=== PATIENT | male | born 1990 | race Two or more races ===

== ENCOUNTER 2022-10-14 13:45 | Inpatient (IN) | payer MEDICAID ==
[~2022-10-14] VITALS: Ht 180.3 cm; Wt 77.1 kg
[2022-10-14] MEDS ORDERED: ONDANSETRON 4 MG/2 ML VIAL IV ONE (14:15)
[2022-10-14] MEDS ORDERED: IV NORMAL SALINE 1000 ML BAG IV ONE ×3 (14:15→18:30)
[2022-10-14] MEDS ORDERED: ONDANSETRON 4 MG/2 ML VIAL ONE (14:21)
[2022-10-14 14:24] LABS: HEMATOCRIT 45.3 % (36.7-47.1); MEAN CORPUSCULAR HEMOGLOBIN 29.6 uug (23.8-33.4); MEAN CORPUSCULAR VOLUME 89.5 fL (73.0-96.2); PLATELET COUNT (AUTO) 394 K/uL (152-348)
[2022-10-14 14:38] LABS: BILIRUBIN,DIRECT 0.2 mg/dL (0.0-0.2); CREATININE 1.9 mg/dL (0.6-1.3); POTASSIUM 4.1 mmol/L (3.5-5.1); TOTAL PROTEIN, SERUM 9.1 g/dL (6.4-8.2)
[2022-10-14] MEDS ORDERED: INSULIN REGULAR, HUMAN 300 UNIT/3 ML VIAL IV ONE (15:30)
[2022-10-14] MEDS ORDERED: MORPHINE SULFATE 2 MG/1 ML DISP.SYRIN IV ONE (15:30)
[2022-10-14] MEDS ORDERED: INSULIN LISPRO 300 UNIT/3 ML VIAL SQ ONE (15:34)
[2022-10-14] MEDS ORDERED: MORPHINE SULFATE 2 MG/1 ML DISP.SYRIN ONE (15:48)
--- NOTE | 2022-10-14 18:31 | NUR ---
Patient presented to the ER with complaints of abdominal pain and nausea vomiting. Physician seen, labs and imaging complated, and medications given per order. Pain and agitation has reduced significantly. Patient to be admitted.
[2022-10-14] MEDS ORDERED: PROCHLORPERAZINE EDISYLATE 10 MG/2 ML VIAL ONE (19:21)
[2022-10-14] MEDS ORDERED: LORAZEPAM 2 MG/1 ML VIAL ONE (19:26)
[2022-10-14 19:27] LABS: *BILIRUBIN,URIN NEGATIVE (NEGATIVE); *CLARITY,URINE CLEAR (CLEAR); *COLOR,URINE YELLOW (YELLOW); *KETONES,URINE 2+ (NEGATIVE); *UROBILINOGEN,URINE 0.2 E.U./dl (NORMAL); LEUKOCYTE ESTERASE ,URINE NEGATIVE (NEGATIVE); NITRITE, URINE NEGATIVE (NEGATIVE); PH,URINE 5.5 (5.0-8.0)
[2022-10-14 19:28] LABS: UGLUCOSE 2+ (NEGATIVE)
[2022-10-14 19:29] LABS: *BLOOD, URINE TRACE (NEGATIVE)
[2022-10-14] MEDS ORDERED: LORAZEPAM 2 MG/1 ML VIAL IV ONE (19:30)
[2022-10-14] MEDS ORDERED: PROCHLORPERAZINE EDISYLATE 10 MG/2 ML VIAL IV ONE (19:30)
--- NOTE | 2022-10-14 19:50 | NUR ---
Note corby in ED - 10/14/22 at 2200 by THU EKG not performed, PT stated that he doesnt want to stay overnight in the hospital. Dr. Sharyn guzman.
[2022-10-14 19:53] LABS: BACTERIA,URINE NONE SEEN /HPF (NONE SEEN); RBC,URINE 0-3 /HPF (0-3); SQUAMOUS EPITHELIAL CELL,UR FEW /HPF (NONE SEEN); WBC,URINE NONE SEEN /HPF (0-3)
[2022-10-14] MEDS ORDERED: ONDANSETRON 4 MG/2 ML VIAL IV PRN (20:30)
[2022-10-14] MEDS ORDERED: MORPHINE SULFATE 4 MG/1 ML DISP.SYRIN IV PRN (20:30)
[2022-10-14] MEDS ORDERED: INSULIN REGULAR, HUMAN 300 UNIT/3 ML VIAL SQ PRN (20:30)
[2022-10-14] MEDS ORDERED: BLOOD SUGAR DIAGNOSTIC 1 EACH STRIP VI SCH (20:30)
[2022-10-14] MEDS ORDERED: DEXTROSE 50% 50 ML DISP.SYRIN IV PRN (20:30)
[2022-10-14] MEDS ORDERED: IV NS 1000 ML 1,000 ML IV PRN (20:30)
--- NOTE | 2022-10-14 21:00 | NUR ---
Called 3rd fl for TELE bed.
--- NOTE | 2022-10-14 21:40 | NUR ---
Report given to NENO Salas.
--- NOTE | 2022-10-14 21:50 | NUR ---
EKG not performed, PT stated that he doesnt want to stay overnight in the hospital. Dr. Sharyn guzman.
--- NOTE | 2022-10-14 21:59 | NUR ---
Called [facility] and they will page Dr. Lew.
--- NOTE | 2022-10-14 22:50 | NUR ---
Patient does not wish to proceed with medical care recommended by Dr. Coles. Patient given information related to possible complications, up to and including , which could occur as a result of leaving the hospital at this time. Patient verbalizes understanding of risks involved due to leaving against medical advice. Patient has signed AMA form.
[2022-10-14] MEDS ORDERED: INSU100C13 SQ (23:02)
[2022-10-14] MEDS ORDERED: METO-295 PO (23:05)
[2022-10-14 23:10] VITALS: BP 119/60
[2022-10-14] MEDS ORDERED: BLOO-1731 MC (23:10)
--- NOTE | 2022-10-14 23:10 | NUR ---
PT is A/O x 4. NAD noted. Ambulatory with a steady gait.
[2022-10-15] MEDS ORDERED: PANTOPRAZOLE SODIUM 40 MG VIAL IV SCH (09:00)
== END 2022-10-14 23:10 | disposition left against medical advice (07) | DRG 48 ==
LOC: ER 13:53 → TELE3 20:22
DX: E10.43 Type 1 diabetes mellitus with diabetic autonomic (poly)neuropathy (principal); E87.1 Hypo-osmolality and hyponatremia; E10.65 Type 1 diabetes mellitus with hyperglycemia; K31.84 Gastroparesis; K21.9 Gastro-esophageal reflux disease without esophagitis; Z20.822 Contact with and (suspected) exposure to COVID-19; Z79.4 Long term (current) use of insulin
CPT/HCPCS: 36415; 85025; 93005; G0378; J0780; J1815; J2060; J2270; J2405; J7040

== ENCOUNTER 2022-10-23 16:35 | Emergency (ER) | payer MEDICAID ==
[~2022-10-23] VITALS: Ht 172.7 cm; Wt 77.1 kg
[~2022-10-23 16:35] MED LIST: BLOO-1731 MC; INSU100C13 SQ; METO-295 PO
[2022-10-23] MEDS ORDERED: HALOPERIDOL LACTATE 5 MG/1 ML VIAL ONE (16:59)
[2022-10-23] MEDS ORDERED: IV NORMAL SALINE 500 ML BAG IV ONE ×2 (17:00→18:00)
[2022-10-23] MEDS ORDERED: HALOPERIDOL LACTATE 5 MG/1 ML VIAL IV ONE (17:00)
[2022-10-23 17:03] LABS: MEAN CORPUSCULAR HEMOGLOBIN 29.2 uug (23.8-33.4); MEAN CORPUSCULAR VOLUME 89.9 fL (73.0-96.2); PLATELET COUNT (AUTO) 349 K/uL (152-348)
[2022-10-23] MEDS ORDERED: MORPHINE SULFATE 4 MG/1 ML DISP.SYRIN IV ONE ×2 (17:15→19:30)
[2022-10-23 17:17] LABS: BILIRUBIN,TOTAL 0.6 mg/dL (0.2-1.0); CREATININE 1.4 mg/dL (0.6-1.3); POTASSIUM 4.3 mmol/L (3.5-5.1); TOTAL PROTEIN, SERUM 8.2 g/dL (6.4-8.2)
[2022-10-23] MEDS ORDERED: EPINEPHRINE 1 MG/1 ML AMP ONE (17:22)
[2022-10-23] MEDS ORDERED: diphenhydrAMINE 50 MG/1 ML VIAL ONE (17:23)
[2022-10-23] MEDS ORDERED: diphenhydrAMINE 50 MG/1 ML VIAL IV ONE (17:30)
--- NOTE | 2022-10-23 17:30 | NUR ---
Pt arrived w/c/o severe abd pain, 06/03, pt was screaming, moaning with facial grimacing. Seen by Dr. Perez for MSE.
[2022-10-23] MEDS ORDERED: EPINEPHRINE 1:10,000 1 MG/10 ML DISP.SYRIN MC ONE (17:45)
--- NOTE | 2022-10-23 17:50 | NUR ---
Received report from lab, glucose = 416.
[2022-10-23] MEDS ORDERED: MORPHINE SULFATE 4 MG/1 ML DISP.SYRIN ONE ×2 (18:23→19:43)
[2022-10-23] MEDS ORDERED: METOCLOPRAMIDE HCL 10 MG/2 ML VIAL ONE (18:43)
[2022-10-23] MEDS ORDERED: METOCLOPRAMIDE HCL 10 MG/2 ML VIAL IV ONE (18:45)
--- NOTE | 2022-10-23 19:07 | NUR ---
Endorsed to Nishi LAZCANO.
[2022-10-23] MEDS ORDERED: ONDA4TAB5 PO (19:27)
[2022-10-23] MEDS ORDERED: INSULIN REGULAR, HUMAN 300 UNIT/3 ML VIAL IV ONE (19:30)
--- NOTE | 2022-10-23 19:30 | NUR ---
SADIA FROM ARNULFO Collins RN
[2022-10-23] MEDS ORDERED: INSULIN REGULAR, HUMAN 300 UNIT/3 ML VIAL ONE (19:44)
--- NOTE | 2022-10-23 19:50 | NUR ---
PT BS RECHECKED AND RESULT IS 399; ORDERS TO GIVE 7UNITS OF REG INSULIN OBTAINED
--- NOTE | 2022-10-23 21:37 | NUR ---
Patient discharged to home in stable condition. Written and verbal after care instructions given. Patient verbalizes understanding of instructions. Stressed follow up or return to ER for worsening s/s.
--- NOTE | 2022-10-23 21:37 | NUR ---
IV removed. Catheter intact and site benign. Pressure and 4x4 gauze applied to site. No bleeding noted.
[2022-10-23 21:39] VITALS: BP 123/65
== END 2022-10-23 21:41 | disposition home or self-care (01) ==
LOC: ER 16:38
DX: R10.13 Epigastric pain (principal); E86.0 Dehydration; E10.65 Type 1 diabetes mellitus with hyperglycemia; E10.43 Type 1 diabetes mellitus with diabetic autonomic (poly)neuropathy; K31.84 Gastroparesis; Z79.4 Long term (current) use of insulin; D72.829 Elevated white blood cell count, unspecified; R11.2 Nausea with vomiting, unspecified
CPT/HCPCS: 80053; 82962 ×2; 85025; 36415; 93005; 71045; 99285; 96361; 96374; 96375; 96376; 96372; 36600; J1200; J0171; J1630; J2765; J2270 ×2; J1815; J7040; A4663

== ENCOUNTER 2022-11-09 13:41 | Inpatient (IN) | payer MEDICAID ==
[~2022-11-09] VITALS: Ht 180.3 cm; Wt 74.2 kg
[~2022-11-09 13:41] MED LIST changes: +ONDA4TAB5 PO
[2022-11-09] MEDS ORDERED: ONDANSETRON 4 MG/2 ML VIAL IV ONE (14:00)
[2022-11-09] MEDS ORDERED: IV NORMAL SALINE 1000 ML BAG IV ONE ×2 (14:00→16:00)
[2022-11-09] MEDS ORDERED: MORPHINE SULFATE 2 MG/1 ML DISP.SYRIN IV ONE (14:00)
[2022-11-09] MEDS ORDERED: ONDANSETRON 4 MG/2 ML VIAL ONE (14:06)
[2022-11-09] MEDS ORDERED: MORPHINE SULFATE 4 MG/1 ML DISP.SYRIN ONE (14:06)
[2022-11-09 14:12] LABS: HEMATOCRIT 43.8 % (36.7-47.1); MEAN CORPUSCULAR HEMOGLOBIN 29.3 uug (23.8-33.4); MEAN CORPUSCULAR VOLUME 87.3 fL (73.0-96.2); PLATELET COUNT (AUTO) 427 K/uL (152-348)
--- NOTE | 2022-11-09 14:16 | NUR ---
Pt arrived in the ED w/ c/o abdominal pain, 07/03 and missed insulin medication. Accucheck 177 @ 1350. No fruity breath observed. Seen by Dr. Wood for MSE.
[2022-11-09 14:25] LABS: BILIRUBIN,DIRECT 0.2 mg/dL (0.0-0.2); BILIRUBIN,TOTAL 0.9 mg/dL (0.2-1.0); CREATININE 1.6 mg/dL (0.6-1.3); POTASSIUM 3.6 mmol/L (3.5-5.1); TOTAL PROTEIN, SERUM 9.8 g/dL (6.4-8.2)
[2022-11-09 14:35] LABS: ETHANOL < 3 MG/DL (0-0)
--- NOTE | 2022-11-09 15:56 | NUR ---
Pt refused CT Abdomen/Pelvis w/o contrast, notified.
[2022-11-09] MEDS ORDERED: PIPERACILLIN SODIUM/TAZOBACTAM 3.375 G in IV DEXTROSE 5% 50 ML IV ONE (16:00)
[2022-11-09] MEDS ORDERED: PIPERACILLIN/TAZOBACTAM/D5W 50 ML IV ONE ×2 (16:02→21:44)
[2022-11-09 17:53] LABS: *CLARITY,URINE SLIGHTLY CLOUDY (CLEAR); *COLOR,URINE YELLOW (YELLOW); *KETONES,URINE 1+ (NEGATIVE); *UROBILINOGEN,URINE 0.2 E.U./dl (NORMAL); LEUKOCYTE ESTERASE ,URINE NEGATIVE (NEGATIVE); NITRITE, URINE NEGATIVE (NEGATIVE); PH,URINE 8.5 (5.0-8.0); UGLUCOSE TRACE (NEGATIVE)
[2022-11-09] MEDS ORDERED: METOCLOPRAMIDE HCL 10 MG/2 ML VIAL IV ONE (18:15)
[2022-11-09] MEDS ORDERED: diphenhydrAMINE 50 MG/1 ML VIAL IV ONE (18:15)
[2022-11-09] MEDS ORDERED: diphenhydrAMINE 50 MG/1 ML VIAL ONE (18:17)
[2022-11-09] MEDS ORDERED: METOCLOPRAMIDE HCL 10 MG/2 ML VIAL ONE (18:17)
--- NOTE | 2022-11-09 18:27 | NUR ---
Pt will be admitted under the medical care of Dr. Robert, Telemetry unit, assigned on rm 321.
[2022-11-09 18:28] LABS: *AMPHETAMINE, URINE NEGATIVE (NEGATIVE); *CANNABINOID, URINE POSITIVE (NEGATIVE); *COCCAINE, URINE NEGATIVE (NEGATIVE); *PHENCYCLIDINE SCREEN,URINE NEGATIVE (NEGATIVE)
--- NOTE | 2022-11-09 18:48 | NUR ---
Called Tele to give report x2, no assigned nurse yet to receive report per Bety.
--- NOTE | 2022-11-09 19:05 | NUR ---
Endorsed to Nemesio FRANKLIN
[2022-11-09 19:22] LABS: *BILIRUBIN,URIN 1+ (NEGATIVE); *BLOOD, URINE TRACE (NEGATIVE)
--- NOTE | 2022-11-09 19:58 | NUR ---
Gave report to Ingrid LAZCANO.
[2022-11-09 20:58] LABS: SQUAMOUS EPITHELIAL CELL,UR FEW /HPF (NONE SEEN)
[2022-11-09 20:59] LABS: BACTERIA,URINE MODERATE /HPF (NONE SEEN)
[2022-11-09 21:00] VITALS: BP 183/105
--- NOTE | 2022-11-09 21:00 | NUR ---
Admitted a 32 years old patient with Dx of Abdominal pain and vomiting. Patient AAOx4. Complain of severe abdominal pain, aching, sharp and tightness 10/. Informed Dr. Borjas and awaiting admitting orders. Left AC IV site intact and patent. NSR on tele with HR of 78/min. Routine admission care done. Plan of care initiated. Safety measure initiated and call light within reached.
--- NOTE | 2022-11-09 21:00 | NUR ---
Pt. admitted to TELE, under care of Dr. Robert. Belongs List completed and with patient. RN Ingrid made aware of patient's arrival.
[2022-11-09] MEDS ORDERED: ACETAMINOPHEN 650 MG SUPP.RECT RC PRN (21:15)
[2022-11-09] MEDS: MORPHINE SULFATE 4 MG/1 ML DISP.SYRIN IV PRN (21:16)
[2022-11-09] MEDS ORDERED: DEXTROSE 50% 50 ML DISP.SYRIN IV PRN (21:45)
[2022-11-09] MEDS ORDERED: BLOOD SUGAR DIAGNOSTIC 1 EACH STRIP VI SCH (21:45)
[2022-11-09] MEDS ORDERED: IV D5W-0.45% NS +20 KCL 1,000 ML IV ONE (21:54)
[2022-11-09] MEDS: POTASSIUM CHLORIDE 20 MEQ in IV D5 1/2 NS 1000 ML 1,000 ML IV PRN (22:00)
[2022-11-09] MEDS ORDERED: PIPERACILLIN SODIUM/TAZOBACTAM 3.375 G in IV DEXTROSE 5% 50 ML IV SCH (22:00)
[2022-11-09] MEDS: INSULIN REGULAR, HUMAN 300 UNIT/3 ML VIAL SQ PRN (22:01)
[2022-11-09 23:03] VITALS: BP 127/79
[2022-11-10] VITALS: BP 138/85
[2022-11-10] MEDS ORDERED: PIPERACILLIN SODIUM/TAZOBACTAM 3.375 G in IV DEXTROSE 5% 50 ML IV ONE (01:00)
[2022-11-10] MEDS: ONDANSETRON 4 MG/2 ML VIAL IV PRN ×2 (01:38→05:39)
[2022-11-10] MEDS: MORPHINE SULFATE 4 MG/1 ML DISP.SYRIN IV PRN ×3 (01:38→10:56)
[2022-11-10 03:50] VITALS: BP 136/82
[2022-11-10] MEDS: BLOOD SUGAR DIAGNOSTIC 1 EACH STRIP VI SCH ×2 (05:38→12:14)
[2022-11-10] MEDS: INSULIN REGULAR, HUMAN 300 UNIT/3 ML VIAL SQ PRN ×2 (05:38→12:36)
[2022-11-10 07:21] LABS: HEMATOCRIT 35.6 % (36.7-47.1); MEAN CORPUSCULAR HEMOGLOBIN 29.4 uug (23.8-33.4); MEAN CORPUSCULAR VOLUME 88.8 fL (73.0-96.2); PLATELET COUNT (AUTO) 303 K/uL (152-348)
--- NOTE | 2022-11-10 07:30 | NUR ---
Sleeping, appears comfortable. IVF infusing. NPO maintained.
[2022-11-10 07:45] LABS: ALANINE AMINOTRANSFERASE 18 U/L (16-63); ALKALINE PHOSPHATASE 84 U/L (50-136); ASPARTATE AMINOTRANSFERASE 18 U/L (15-37); BILIRUBIN,TOTAL 0.7 mg/dL (0.2-1.0); CARBON DIOXIDE 27 mmol/L (21-32); CHLORIDE 100 mmol/L (98-107); CHOLESTEROL 176 mg/dL (<200); CREATININE 1.2 mg/dL (0.6-1.3); GLUCOSE 228 mg/dL (74-106); HDL CHOLESTEROL 34 mg/dL (40-60); MAGNESIUM 1.4 mg/dL (1.8-2.4); PHOSPHOROUS 4.7 mg/dL (2.5-4.9); POTASSIUM 3.5 mmol/L (3.5-5.1); TOTAL PROTEIN, SERUM 6.5 g/dL (6.4-8.2); TRIGLYCERIDES 105 MG/DL (30-150); UREA NITROGEN, BLOOD 12 mg/dL (7-18)
[2022-11-10 07:52] LABS: LIPASE 30 U/L (73-393)
[2022-11-10] MEDS ORDERED: PIPERACILLIN SODIUM/TAZOBACTAM 3.375 G in IV DEXTROSE 5% 100 ML IV SCH (08:00)
[2022-11-10] MEDS ORDERED: PANTOPRAZOLE SODIUM 40 MG VIAL IV SCH (09:00)
[2022-11-10] MEDS ORDERED: LORAZEPAM 2 MG/1 ML VIAL IV PRN (09:30)
[2022-11-10] MEDS: MAGNESIUM SULFATE/D5W 100 ML IV SCH ×2 (09:47→14:11)
[2022-11-10] MEDS: POTASSIUM CHLORIDE 20 MEQ in IV D5 1/2 NS 1000 ML 1,000 ML IV PRN (10:32)
[2022-11-10 11:06] VITALS: BP 146/93
[2022-11-10] MEDS ORDERED: INSULIN GLARGINE,HUM 300 UNITS/3 ML CARTRIDGE SQ SCH (12:30)
[2022-11-10] MEDS ORDERED: INSU100V7 SQ (12:44)
--- NOTE | 2022-11-10 13:10 | NUR ---
CT abdomen/pelvis done.
[2022-11-10] MEDS ORDERED: IOHEXOL 300MG/ML 100 ML INFUS..BTL ONE (14:29)
[2022-11-10] MEDS ORDERED: SWABABLE VALVE TRANSFER SET EA MC ONE (14:29)
[2022-11-10] MEDS ORDERED: IV NORMAL SALINE 250 ML IV ONE (14:30)
--- NOTE | 2022-11-10 16:28 | NUR ---
Patient anxious and crying about issues with and asked to go home against medical advice. Risk and benefits discussed with the patient but insisted on AMA, form signed. Dr. Borjas informed. Saline lock removed. Went home ambulatory in fair condition.
== END 2022-11-10 16:15 | disposition left against medical advice (07) | DRG 720 ==
LOC: ER 13:41 → TELE3 20:37 → MEDSURG3 11-10 10:11
PROVIDERS: ADMIT Internal Medicine; ATTEND Internal Medicine
DX: A41.9 Sepsis, unspecified organism (principal); N17.0 Acute kidney failure with tubular necrosis; E10.43 Type 1 diabetes mellitus with diabetic autonomic (poly)neuropathy; K31.84 Gastroparesis; E83.52 Hypercalcemia; Z79.4 Long term (current) use of insulin; Z20.822 Contact with and (suspected) exposure to COVID-19; A08.4 Viral intestinal infection, unspecified; E10.65 Type 1 diabetes mellitus with hyperglycemia; Z83.3 Family history of diabetes mellitus; K21.9 Gastro-esophageal reflux disease without esophagitis; E86.9 Volume depletion, unspecified; Z91.199 Patient's noncompliance with other medical treatment and regimen due to unspecified reason
CPT/HCPCS: 36415; 71045; 83605; 83690; 83735; 84100; 84484; 85025; 87040; 93005; A4663; C9113; G0378; G0480; J1200; J1815; J2060; J2270; J2405; J2543; J2765; J3475; J3480; J7040; Q9967

== ENCOUNTER 2023-02-18 15:13 | Inpatient (IN) | payer MEDICAID ==
[~2023-02-18] VITALS: Ht 180.3 cm; Wt 74.4 kg
[~2023-02-18 15:13] MED LIST changes: +INSU100V7 SQ
--- NOTE | 2023-02-18 15:33 | NUR ---
Patient ambulated to ER bed 2A, loud moaning heard, c/o severe sudden abdominal pains since about 1400 today, occasional spitting of saliva seen, no actual vomitting seen. Patient denies street drug use.
--- NOTE | 2023-02-18 15:34 | NUR ---
Patient denies marijuana use or any other street drug-use.
[2023-02-18] MEDS ORDERED: MORPHINE SULFATE 2 MG/1 ML DISP.SYRIN IV ONE (15:45)
[2023-02-18] MEDS ORDERED: ONDANSETRON 4 MG/2 ML VIAL IV ONE (15:45)
[2023-02-18] MEDS ORDERED: IV NORMAL SALINE 1000 ML BAG IV ONE (15:45)
--- NOTE | 2023-02-18 15:51 | NUR ---
Patient ambulated to the bathroom with brisk steady gait from ER room 2A to do bowel movement.
--- NOTE | 2023-02-18 15:56 | NUR ---
3 extra blankets provided per patient's request, pending results and disposition.
--- NOTE | 2023-02-18 16:01 | NUR ---
Patient prefers to use his bucket instead of the hospital emesis bags.
[2023-02-18] MEDS ORDERED: diphenhydrAMINE 50 MG/1 ML VIAL ONE (16:12)
[2023-02-18] MEDS ORDERED: METOCLOPRAMIDE HCL 10 MG/2 ML VIAL ONE (16:12)
[2023-02-18 16:14] LABS: HEMATOCRIT 44.4 % (36.7-47.1); MEAN CORPUSCULAR HEMOGLOBIN 28.6 uug (23.8-33.4); MEAN CORPUSCULAR VOLUME 87.2 fL (73.0-96.2); PLATELET COUNT (AUTO) 224 K/uL (152-348)
[2023-02-18 16:15] LABS: CREATININE 1.1 mg/dL (0.6-1.3); POTASSIUM 3.9 mmol/L (3.5-5.1)
[2023-02-18] MEDS ORDERED: METOCLOPRAMIDE HCL 10 MG/2 ML VIAL IV ONE (16:15)
[2023-02-18] MEDS ORDERED: diphenhydrAMINE 50 MG/1 ML VIAL IV ONE (16:15)
--- NOTE | 2023-02-18 16:26 | NUR ---
Less loud moaning heard and less spitting of saliva seen. No actual vomiting seen. Patient is for CT scan at this time. Patient maintained on continuous BP & SpO2 monitors. Heart rate=high 80's-low 100's/min. SpO2 levels= >95% at room air.
[2023-02-18 16:27] LABS: BILIRUBIN,DIRECT 0.1 mg/dL (0.0-0.2); BILIRUBIN,TOTAL 0.5 mg/dL (0.2-1.0); TOTAL PROTEIN, SERUM 8.4 g/dL (6.4-8.2)
--- NOTE | 2023-02-18 17:17 | NUR ---
The patient starts retching and starts moaning louder whenever a staff approaches and enters the room. Patient is now waiting for diagnostic tests' results at this time.
--- NOTE | 2023-02-18 17:21 | NUR ---
Urine sample pending. Urinal and sterile urine cup are at the bedside.
--- NOTE | 2023-02-18 17:52 | NUR ---
Patient is resting comfortably on gurney with eyes closed with minimal retching and moaning heard when patient is left alone. No acute change in condition seen.
--- NOTE | 2023-02-18 18:14 | NUR ---
Patient still has not provided urine sample despite full bladder seen in CT scan. Patient was instructed to give urine sample again. PO challenge started. Ice chips provided. Patient immediately did the retching behavior after anthony galeana MD notified.
[2023-02-18] MEDS ORDERED: MORPHINE SULFATE 4 MG/1 ML DISP.SYRIN IV ONE (18:15)
[2023-02-18] MEDS ORDERED: KETOROLAC TROMETHAMINE 15 MG INJ IVP ONE (18:15)
[2023-02-18] MEDS ORDERED: ONDANSETRON 4 MG/2 ML VIAL IV PRN (18:30)
[2023-02-18] MEDS ORDERED: ACETAMINOPHEN 325 MG TABLET PO PRN (18:30)
[2023-02-18] MEDS ORDERED: INSULIN REGULAR, HUMAN 300 UNIT/3 ML VIAL SQ PRN (18:30)
[2023-02-18] MEDS ORDERED: LORAZEPAM 2 MG/1 ML VIAL IV PRN (18:30)
[2023-02-18] MEDS ORDERED: METOCLOPRAMIDE HCL 10 MG/2 ML VIAL IV PRN (18:30)
[2023-02-18] MEDS ORDERED: DEXTROSE 50% 50 ML DISP.SYRIN IV PRN (18:30)
[2023-02-18] MEDS ORDERED: IV 1/2NS 1000 ML 1,000 ML IV PRN (18:30)
[2023-02-18 18:36] LABS: *BILIRUBIN,URIN NEGATIVE (NEGATIVE); *BLOOD, URINE 1+ (NEGATIVE); *CLARITY,URINE CLEAR (CLEAR); *COLOR,URINE YELLOW (YELLOW); *KETONES,URINE 3+ (NEGATIVE); *UROBILINOGEN,URINE 0.2 E.U./dl (NORMAL); LEUKOCYTE ESTERASE ,URINE NEGATIVE (NEGATIVE); NITRITE, URINE NEGATIVE (NEGATIVE); PH,URINE 8.5 (5.0-8.0); UGLUCOSE NEGATIVE (NEGATIVE)
[2023-02-18 18:45] LABS: *AMPHETAMINE, URINE NEGATIVE (NEGATIVE); *CANNABINOID, URINE POSITIVE (NEGATIVE); *COCCAINE, URINE NEGATIVE (NEGATIVE); *PHENCYCLIDINE SCREEN,URINE NEGATIVE (NEGATIVE)
--- NOTE | 2023-02-18 18:48 | NUR ---
Patient is admitted to medical-surgical floor room 325 , under the care of JACKIE Duran but the 3rd floor nurses are not ready for hands off report@this time. "Please give report after change of shift" per 3rd floor battery charger tester Cindy.
--- NOTE | 2023-02-18 19:09 | NUR ---
Nursing SBAR given to slot shift manager ER nurse Vivian.
--- NOTE | 2023-02-18 19:10 | NUR ---
REPPORT RECEIVED FROM ABDON LAZCANO.
--- NOTE | 2023-02-18 19:30 | NUR ---
REPORT GIVEN TO ARA LAZCANO.
--- NOTE | 2023-02-18 20:30 | NUR ---
PT A,A AND O X 3 WITH ABD PAIN AND N/V, NAD OBSERVED. Pt. admitted to 325 , under care of Dr. Nicolette [facility] [employer] Belongs List completed. PT TAKEN TO RM 325 VIA W/C.
[2023-02-18] MEDS ORDERED: INSULIN GLARGINE,HUM 300 UNITS/3 ML CARTRIDGE SQ SCH (21:00)
--- NOTE | 2023-02-18 21:00 | NUR ---
ADMITTED 32 YR OLD MALE DIAGNOSED WITH INTRACTABLE N/V. COMPLAINING OF ABDOMINAL PAIN 03/03. PT HAS BEEN VOMITING EVERY FEW MINUTES. PER PT HASN'T EATEN ANYTHING TODAY AND HAS NO APPETITE TO EAT. BLOOD SUGAR IS 171. LANTUS AND INSULIN NOT GIVEN. NO ASPIRATION NOTED. ROUTINE ADMISSION DONE. ORIENTED PT TO HOSPITAL ROOM. CALL LIGHT WITH REACH. LEFT BED IN SEMI FOWLERS AND IN LOWEST POSITION. SAFETY MEASURES MAINTAINED.
[2023-02-18] MEDS: BLOOD SUGAR DIAGNOSTIC 1 EACH STRIP VI SCH (21:07)
[2023-02-18 21:22] VITALS: BP 155/93
[2023-02-18 22:08] LABS: BACTERIA,URINE FEW /HPF (NONE SEEN); RBC,URINE 20-50 /HPF (0-3); SPERM,URINE FEW /HPF (NONE SEEN); SQUAMOUS EPITHELIAL CELL,UR FEW /HPF (NONE SEEN); WBC,URINE 0-3 /HPF (0-3)
[2023-02-18] MEDS: MORPHINE SULFATE 2 MG/1 ML DISP.SYRIN IV PRN (23:51)
[2023-02-19] MEDS: MORPHINE SULFATE 2 MG/1 ML DISP.SYRIN IV PRN ×2 (03:55→08:12)
[2023-02-19 04:33] VITALS: BP 117/75
[2023-02-19 05:53] LABS: HEMATOCRIT 35.8 % (36.7-47.1); MEAN CORPUSCULAR HEMOGLOBIN 28.1 uug (23.8-33.4); MEAN CORPUSCULAR VOLUME 85.5 fL (73.0-96.2); PLATELET COUNT (AUTO) 305 K/uL (152-348)
[2023-02-19] MEDS: BLOOD SUGAR DIAGNOSTIC 1 EACH STRIP VI SCH ×2 (06:00→06:32)
--- NOTE | 2023-02-19 06:32 | NUR ---
BS 49. Given 8 oz of orange juice. Rechecked after 30 minutes, BS 74. Will continue to monitor.
--- NOTE | 2023-02-19 07:00 | NUR ---
pt received in bed sleeping call light with in reach vs are stable no c/o pain noted
[2023-02-19 07:25] LABS: CREATININE 1.4 mg/dL (0.6-1.3); MAGNESIUM 1.8 mg/dL (1.8-2.4); PHOSPHOROUS 4.2 mg/dL (2.5-4.9); POTASSIUM 3.6 mmol/L (3.5-5.1)
[2023-02-19] MEDS ORDERED: PANTOPRAZOLE SODIUM 40 MG VIAL IV SCH (09:00)
--- NOTE | 2023-02-19 09:03 | NUR ---
pt refused to have iv fluids continue charge nurse and md made aware pt said he is going home
[2023-02-19] MEDS ORDERED: METO-295 PO (09:50)
--- NOTE | 2023-02-19 10:08 | NUR ---
dc orders received noted and carried out,dc instruction and education given to the pt ,nehal smith per md orders,pt said he will follow up with his pcp ,pt left the facility via private car in stable condition
== END 2023-02-19 10:10 | disposition home or self-care (01) | DRG 48 ==
LOC: ER 15:15 → MEDSURG3 18:30
PROVIDERS: ADMIT Nurse Practitioner Family; ATTEND Nurse Practitioner Family
DX: E11.43 Type 2 diabetes mellitus with diabetic autonomic (poly)neuropathy (principal); D72.829 Elevated white blood cell count, unspecified; K31.84 Gastroparesis; F41.9 Anxiety disorder, unspecified; Z79.4 Long term (current) use of insulin; Z83.3 Family history of diabetes mellitus; F12.90 Cannabis use, unspecified, uncomplicated; K21.9 Gastro-esophageal reflux disease without esophagitis
CPT/HCPCS: 36415; 36600; 82803; 83690; 83735; 84100; 85025; A4663; C9113; G0378; J1200; J1815; J1885; J2060; J2270; J2405; J2765; J7040

== ENCOUNTER 2023-03-11 14:19 | Inpatient (IN) | payer MEDICAID ==
[~2023-03-11] VITALS: Ht 180.3 cm; Wt 79.4 kg
[2023-03-11] MEDS ORDERED: IV NORMAL SALINE 1000 ML BAG IV ONE (14:45)
[2023-03-11] MEDS ORDERED: MORPHINE SULFATE 2 MG/1 ML DISP.SYRIN IV ONE (14:45)
[2023-03-11] MEDS ORDERED: METOCLOPRAMIDE HCL 10 MG/2 ML VIAL IV ONE (14:45)
--- NOTE | 2023-03-11 14:45 | NUR ---
Patient ambulated into room #2a, was seen by ER Provider, informed of plan of care, patient is cool and moist to touch, c/o nausea x few hours. Patient remains alert and oriented x 4. #18g established inn right ac, blood collected and sent to lab, awaiting results. Bedside glucose 114.
[2023-03-11 14:55] LABS: HEMATOCRIT 41.2 % (36.7-47.1); MEAN CORPUSCULAR HEMOGLOBIN 28.7 uug (23.8-33.4); PLATELET COUNT (AUTO) 335 K/uL (152-348)
[2023-03-11] MEDS ORDERED: MORPHINE SULFATE 4 MG/1 ML DISP.SYRIN ONE ×2 (14:59→16:57)
[2023-03-11] MEDS ORDERED: METOCLOPRAMIDE HCL 10 MG/2 ML VIAL ONE ×2 (14:59→23:27)
--- NOTE | 2023-03-11 15:02 | NUR ---
Patient medicated as per order for pain and nausea.
[2023-03-11 15:03] LABS: CREATININE 1.2 mg/dL (0.6-1.3); POTASSIUM 3.4 mmol/L (3.5-5.1)
[2023-03-11 15:09] LABS: BILIRUBIN,DIRECT 0.1 mg/dL (0.0-0.2); BILIRUBIN,TOTAL 0.5 mg/dL (0.2-1.0); TOTAL PROTEIN, SERUM 8.4 g/dL (6.4-8.2)
--- NOTE | 2023-03-11 15:29 | NUR ---
Patient refused CT. ER Provider aware.
--- NOTE | 2023-03-11 15:45 | NUR ---
ER Provider at bedside talking with patient.
[2023-03-11] MEDS ORDERED: ONDANSETRON 4 MG/2 ML VIAL IV ONE ×2 (16:15→17:15)
[2023-03-11] MEDS ORDERED: ONDANSETRON 4 MG/2 ML VIAL ONE ×2 (16:31→18:13)
--- NOTE | 2023-03-11 16:32 | NUR ---
Medicated as per order for nausea.
[2023-03-11] MEDS ORDERED: MORPHINE SULFATE 4 MG/1 ML DISP.SYRIN IV ONE (17:00)
--- NOTE | 2023-03-11 17:00 | NUR ---
Medicated for pain as per order.Patient aware he will be admitted to the hospital, awaiting room assignment.
--- NOTE | 2023-03-11 17:18 | NUR ---
Patient resting at this time, no s/s of nausea at this time.
--- NOTE | 2023-03-11 17:30 | NUR ---
Belongings list done.
--- NOTE | 2023-03-11 18:47 | NUR ---
Patient was medicated for nausea, continues to have nausea with no vomiting. Frequently turns off B/P monitor. Requested and given urinal at this time.
--- NOTE | 2023-03-11 19:06 | NUR ---
Report given to accepting nurse Vivian.
--- NOTE | 2023-03-11 19:06 | NUR ---
REPORT RECEIVED FROM ABBIE LAZCANO.
--- NOTE | 2023-03-11 20:34 | NUR ---
Dr. Coles on panel call with Fan Duran NP.
[2023-03-11] MEDS ORDERED: DEXTROSE 50% 50 ML DISP.SYRIN IV PRN (20:45)
[2023-03-11] MEDS ORDERED: MORPHINE SULFATE 2 MG/1 ML DISP.SYRIN IV PRN (20:45)
[2023-03-11] MEDS ORDERED: INSULIN REGULAR, HUMAN 300 UNIT/3 ML VIAL SQ PRN (20:45)
[2023-03-11] MEDS ORDERED: MAGNESIUM HYDROXIDE 30 ML LIQUID UDC PO PRN (20:45)
[2023-03-11] MEDS ORDERED: POTASSIUM CHLORIDE 50 ML IV SCH (20:45)
[2023-03-11] MEDS ORDERED: LORAZEPAM 2 MG/1 ML VIAL IV PRN (20:45)
[2023-03-11] MEDS ORDERED: IV LACTATED RINGERS SOLUTION 1,000 ML IV PRN (20:45)
[2023-03-11] MEDS ORDERED: ACETAMINOPHEN 325 MG TABLET PO PRN (20:45)
[2023-03-11] MEDS ORDERED: INSULIN GLARGINE,HUM 300 UNITS/3 ML CARTRIDGE SQ SCH (21:00)
--- NOTE | 2023-03-11 22:10 | NUR ---
PT UP OOB AMB TO BR WITH STEADY GAIT.
[2023-03-11] MEDS: METOCLOPRAMIDE HCL 10 MG/2 ML VIAL IV SCH (23:26)
--- NOTE | 2023-03-11 23:35 | NUR ---
PT A,A AND O X4 WITH ACTIVE N/V AND ABD PAIN, VSS.Pt. admitted to 305 , under care Dr. BIRD Belongs List completed
--- NOTE | 2023-03-11 23:45 | NUR ---
Received patient from ER via w/c, alert and oriented x4, in no acute distress. LAC heplock intact and patent. Routine admission care rendered. Oriented to room/BR/TV and call light. Care plan initiated. Needs assessed and attended to.
[2023-03-11] MEDS: BLOOD SUGAR DIAGNOSTIC 1 EACH STRIP VI SCH (23:50)
[2023-03-12 00:05] VITALS: BP 156/85
[2023-03-12] MEDS ORDERED: POTASSIUM CHLORIDE 50 ML IV SCH (00:15)
[2023-03-12 04:00] VITALS: BP 142/71
[2023-03-12] MEDS: METOCLOPRAMIDE HCL 10 MG/2 ML VIAL IV SCH (06:10)
[2023-03-12] MEDS: BLOOD SUGAR DIAGNOSTIC 1 EACH STRIP VI SCH (06:37)
[2023-03-12] MEDS ORDERED: PANTOPRAZOLE SODIUM 40 MG TABLET.DR PO SCH (07:00)
--- NOTE | 2023-03-12 08:05 | NUR ---
Report given by night nurse, patient BS 265 at 0645 and coverage needed. This nurse gave 6 units at 08:06. Patient is in hospital bed sleeping comfortable. Encourage patient to eat his breakfast but he stated that he wants to get his rest.
--- NOTE | 2023-03-12 08:11 | NUR ---
Patient wants to leave, Dr. Christy is aware and placing discharge orders.
[2023-03-12] MEDS ORDERED: INSU3INS6 SQ (08:20)
--- NOTE | 2023-03-12 08:39 | NUR ---
Patient discharged. He refused to wait for his paper work. He states that his was downstairs and he could not wait any longer. Risk fully explained and he is aware. All IV lines were removed and was able to sign his belonging list. Patient departure from hospital at 0840.
[2023-03-12] MEDS ORDERED: METOCLOPRAMIDE HCL 10 MG TABLET PO SCH (13:00)
== END 2023-03-12 08:40 | disposition home or self-care (01) | DRG 48 ==
LOC: ER 14:20 → MEDSURG3 20:15
PROVIDERS: ADMIT Nurse Practitioner Family; ATTEND Nurse Practitioner Family
DX: E10.43 Type 1 diabetes mellitus with diabetic autonomic (poly)neuropathy (principal); E87.6 Hypokalemia; K31.84 Gastroparesis; Z79.4 Long term (current) use of insulin; F41.9 Anxiety disorder, unspecified; Z83.3 Family history of diabetes mellitus; Z20.822 Contact with and (suspected) exposure to COVID-19; R10.9 Unspecified abdominal pain; R11.2 Nausea with vomiting, unspecified
CPT/HCPCS: 36415; 83690; 85025; A4663; G0378; J1815; J2270; J2405; J2765; J3480; J3490; J7120

== ENCOUNTER 2023-06-02 09:01 | Emergency (ER) | payer MEDICAID ==
[~2023-06-02] VITALS: Ht 167.6 cm; Wt 77.1 kg
[~2023-06-02 09:01] MED LIST changes: -INSU100V7 SQ; +INSU3INS6 SQ
[2023-06-02] MEDS ORDERED: IV NORMAL SALINE 1000 ML BAG IV ONE (09:30)
[2023-06-02] MEDS ORDERED: diphenhydrAMINE 50 MG/1 ML VIAL ONE (09:44)
[2023-06-02] MEDS ORDERED: ONDANSETRON 4 MG/2 ML VIAL ONE (09:44)
[2023-06-02] MEDS ORDERED: diphenhydrAMINE 50 MG/1 ML VIAL IV ONE (09:45)
[2023-06-02] MEDS ORDERED: HYDROMORPHONE 1 MG/1 ML DISP.SYRIN ONE (09:45)
[2023-06-02] MEDS ORDERED: HYDROMORPHONE 1 MG/1 ML DISP.SYRIN IV ONE (09:45)
[2023-06-02] MEDS ORDERED: ONDANSETRON 4 MG/2 ML VIAL IV ONE (09:45)
[2023-06-02 09:49] LABS: BASOPHILS # (AUTO) 0.1 K/UL (0.0-0.2); BASOPHILS % (AUTO) 0.5 % (0.0-2.0); EOSINOPHILS % (AUTO) 0.2 % (0.0-7.0); HEMOGLOBIN 14.8 g/dL (12.5-16.3); LYMPHOCYTES # (AUTO) 2.5 K/uL (0.8-4.8); LYMPHOCYTES % (AUTO) 17.3 % (20.5-51.5); MEAN CORPUSCULAR HEMOGLOBIN 28.3 uug (23.8-33.4); MEAN CORPUSCULAR HGB CONC 33 g/dL (32.5-36.3); MEAN CORPUSCULAR VOLUME 85.9 fL (73.0-96.2); MONOCYTES # (AUTO) 1.2 K/uL (0.1-1.30); MONOCYTES % (AUTO) 7.9 % (0.0-11.0); NEUTROPHILS # (AUTO) 10.9 K/uL (1.8-8.9); NEUTROPHILS % (AUTO) 74.1 % (38.5-71.5); PLATELET COUNT (AUTO) 475 K/uL (152-348); RED BLOOD CELL COUNT(AUTO) 5.25 MIL/uL (4.06-5.63); RED CELL DISTRIBUTION WIDTH 16.1 % (12.1-16.2); WHITE BLOOD COUNT (AUTO) 14.6 K/uL (3.6-10.2)
[2023-06-02 09:58] LABS: DIFFERENTIAL COMMENT 1
[2023-06-02 10:03] LABS: ALANINE AMINOTRANSFERASE 18 U/L (16-63); ALBUMIN 4.9 g/dL (3.4-5.0); ALKALINE PHOSPHATASE 131 U/L (50-136); ASPARTATE AMINOTRANSFERASE 15 U/L (15-37); BILIRUBIN,DIRECT 0.2 mg/dL (0.0-0.2); BILIRUBIN,TOTAL 0.8 mg/dL (0.2-1.0); CALCIUM 10.9 mg/dL (8.5-10.1); CARBON DIOXIDE 29 mmol/L (21-32); CHLORIDE 96 mmol/L (98-107); CREATININE 1.4 mg/dL (0.6-1.3); GLUCOSE 84 mg/dL (74-106); LIPASE 42 U/L (73-393); POTASSIUM 3.5 mmol/L (3.5-5.1); SODIUM SERUM 137 mmol/L (136-145); TOTAL PROTEIN, SERUM 9.9 g/dL (6.4-8.2); UREA NITROGEN, BLOOD 18 mg/dL (7-18)
[2023-06-02] MEDS ORDERED: DEXTROSE 50% 50 ML DISP.SYRIN IV ONE (12:00)
[2023-06-02] MEDS ORDERED: DEXTROSE 50% 50 ML DISP.SYRIN ONE ×3 (12:00→12:11)
[2023-06-02 12:53] LABS: *BILIRUBIN,URIN NEGATIVE (NEGATIVE); *CLARITY,URINE CLEAR (CLEAR); *COLOR,URINE YELLOW (YELLOW); *KETONES,URINE 1+ (NEGATIVE); *PROTEIN,URINE 2+ (NEGATIVE); *UROBILINOGEN,URINE 0.2 E.U./dl (NORMAL); LEUKOCYTE ESTERASE ,URINE NEGATIVE (NEGATIVE); NITRITE, URINE NEGATIVE (NEGATIVE); UGLUCOSE NEGATIVE (NEGATIVE)
[2023-06-02 13:11] LABS: *BLOOD, URINE TRACE (NEGATIVE)
[2023-06-02 13:55] LABS: WBC,URINE 0-3 /HPF (0-3)
[2023-06-02 14:48] VITALS: O2SAT 99
== END 2023-06-02 15:20 | disposition left against medical advice (07) ==
LOC: ER 09:03
DX: R11.2 Nausea with vomiting, unspecified (principal); E10.65 Type 1 diabetes mellitus with hyperglycemia; R07.89 Other chest pain; K21.9 Gastro-esophageal reflux disease without esophagitis; Z88.8 Allergy status to other drugs, medicaments and biological substances; Z79.4 Long term (current) use of insulin; Z79.899 Other long term (current) drug therapy
CPT/HCPCS: 99285; 74176; 96374; 96375; 71045; 80076; 80048; 81001; 82009; 83690; 85025; 84484; 36415; 93005; J3490; J1200; J2405; J1170; J7040; A4663

== ENCOUNTER 2023-07-02 06:34 | Emergency (ER) | payer MEDICAID ==
[~2023-07-02] VITALS: Ht 180.3 cm; Wt 77.1 kg
[2023-07-02] MEDS ORDERED: LORAZEPAM 2 MG/1 ML VIAL IV ONE (07:00)
[2023-07-02] MEDS ORDERED: PANTOPRAZOLE SODIUM 40 MG VIAL IV ONE (07:00)
[2023-07-02] MEDS ORDERED: diphenhydrAMINE 50 MG/1 ML VIAL IV ONE (07:00)
[2023-07-02] MEDS ORDERED: HALOPERIDOL LACTATE 5 MG/1 ML VIAL IV ONE (07:00)
[2023-07-02] MEDS ORDERED: METOCLOPRAMIDE HCL 10 MG/2 ML VIAL IV ONE (07:00)
[2023-07-02] MEDS ORDERED: IV NORMAL SALINE 1000 ML BAG IV ONE ×2 (07:00)
[2023-07-02] MEDS ORDERED: diphenhydrAMINE 50 MG/1 ML VIAL ONE (07:05)
[2023-07-02] MEDS ORDERED: LORAZEPAM 2 MG/1 ML VIAL ONE (07:05)
[2023-07-02] MEDS ORDERED: PANTOPRAZOLE SODIUM 40 MG VIAL ONE (07:05)
[2023-07-02] MEDS ORDERED: METOCLOPRAMIDE HCL 10 MG/2 ML VIAL ONE (07:05)
[2023-07-02 07:16] LABS: BASOPHILS # (AUTO) 0.1 K/UL (0.0-0.2); BASOPHILS % (AUTO) 0.8 % (0.0-2.0); EOSINOPHILS # (AUTO) 0.1 K/uL (0.0-0.7); EOSINOPHILS % (AUTO) 1.4 % (0.0-7.0); HEMATOCRIT 39.2 % (36.7-47.1); HEMOGLOBIN 13.2 g/dL (12.5-16.3); LYMPHOCYTES # (AUTO) 3.2 K/uL (0.8-4.8); LYMPHOCYTES % (AUTO) 30.5 % (20.5-51.5); MEAN CORPUSCULAR HEMOGLOBIN 28.8 uug (23.8-33.4); MEAN CORPUSCULAR HGB CONC 34 g/dL (32.5-36.3); MEAN CORPUSCULAR VOLUME 85.6 fL (73.0-96.2); MONOCYTES % (AUTO) 9.5 % (0.0-11.0); NEUTROPHILS # (AUTO) 6.1 K/uL (1.8-8.9); NEUTROPHILS % (AUTO) 57.8 % (38.5-71.5); PLATELET COUNT (AUTO) 337 K/uL (152-348); RED BLOOD CELL COUNT(AUTO) 4.57 MIL/uL (4.06-5.63); RED CELL DISTRIBUTION WIDTH 15.8 % (12.1-16.2); WHITE BLOOD COUNT (AUTO) 10.5 K/uL (3.6-10.2)
[2023-07-02 07:19] LABS: DIFFERENTIAL COMMENT 1
[2023-07-02] MEDS ORDERED: DICYCLOMINE HCL 20 MG/2 ML AMPUL IM STA (07:33)
[2023-07-02 07:47] LABS: CALCIUM 9.6 mg/dL (8.5-10.1); CREATININE 1.3 mg/dL (0.6-1.3); POTASSIUM 3.3 mmol/L (3.5-5.1)
[2023-07-02 07:50] LABS: ETHANOL < 3 MG/DL (0-10)
[2023-07-02 07:51] LABS: ALBUMIN 4.3 g/dL (3.4-5.0); BILIRUBIN,DIRECT 0.2 mg/dL (0.0-0.2); BILIRUBIN,TOTAL 0.7 mg/dL (0.2-1.0); TOTAL PROTEIN, SERUM 8.7 g/dL (6.4-8.2)
[2023-07-02 08:45] LABS: MAGNESIUM 1.9 mg/dL (1.8-2.4); PHOSPHOROUS 2.8 mg/dL (2.5-4.9)
[2023-07-02] MEDS ORDERED: PANT20TA2 PO (08:56)
[2023-07-02] MEDS ORDERED: PROCHLORPERAZINE EDISYLATE 10 MG/2 ML VIAL ONE (09:24)
[2023-07-02] MEDS ORDERED: PROCHLORPERAZINE EDISYLATE 10 MG/2 ML VIAL IV ONE (09:30)
[2023-07-02 09:31] LABS: *BILIRUBIN,URIN NEGATIVE (NEGATIVE); *BLOOD, URINE 2+ (NEGATIVE); *CLARITY,URINE CLEAR (CLEAR); *COLOR,URINE YELLOW (YELLOW); *KETONES,URINE NEGATIVE (NEGATIVE); *UROBILINOGEN,URINE 0.2 E.U./dl (NORMAL); LEUKOCYTE ESTERASE ,URINE NEGATIVE (NEGATIVE); NITRITE, URINE NEGATIVE (NEGATIVE); PH,URINE 5.5 (5.0-8.0); UGLUCOSE TRACE (NEGATIVE)
[2023-07-02 09:36] LABS: *PROTEIN,URINE 3+ (NEGATIVE)
[2023-07-02 10:04] LABS: *AMPHETAMINE, URINE NEGATIVE (NEGATIVE); *BARBITURATE, URINE NEGATIVE (NEGATIVE); *BENZODIAZEPINE, URINE NEGATIVE (NEGATIVE); *CANNABINOID, URINE POSITIVE (NEGATIVE); *COCCAINE, URINE NEGATIVE (NEGATIVE); *OPIATE, URINE NEGATIVE (NEGATIVE); *PHENCYCLIDINE SCREEN,URINE NEGATIVE (NEGATIVE); FENTANYL, URINE NEGATIVE (NEGATIVE)
[2023-07-02 11:00] LABS: BACTERIA,URINE FEW /HPF (NONE SEEN); SQUAMOUS EPITHELIAL CELL,UR FEW /HPF (NONE SEEN); WBC,URINE 0-3 /HPF (0-3)
[2023-07-02 12:06] VITALS: BP 122/80; TEMP 98; O2SAT 99
== END 2023-07-02 12:07 | disposition home or self-care (01) ==
LOC: ER 06:41
DX: R11.2 Nausea with vomiting, unspecified (principal); K31.84 Gastroparesis; E87.6 Hypokalemia; F12.10 Cannabis abuse, uncomplicated; E11.65 Type 2 diabetes mellitus with hyperglycemia; K21.9 Gastro-esophageal reflux disease without esophagitis; Z88.8 Allergy status to other drugs, medicaments and biological substances; Z79.4 Long term (current) use of insulin; Z79.899 Other long term (current) drug therapy
CPT/HCPCS: 80076; 80048; 81001; 82009; 83690; 83735; 84100; 85025; 99284; 96361; 96374; 96375; 96372; 80320; 80307; J0500; J1200; J2060; J2765; C9113; J0780; J7040 ×2; A4663; G0480

== ENCOUNTER 2023-10-07 19:55 | Emergency (ER) | payer MEDICAID, OTHER ==
[~2023-10-07] VITALS: Ht 180.3 cm; Wt 77.1 kg
[~2023-10-07 19:55] MED LIST changes: +PANT20TA2 PO
[2023-10-07] MEDS ORDERED: METOCLOPRAMIDE HCL 10 MG/2 ML VIAL IV ONE (20:30)
[2023-10-07] MEDS ORDERED: diphenhydrAMINE 50 MG/1 ML VIAL IV ONE (20:30)
[2023-10-07] MEDS ORDERED: IV NORMAL SALINE 1000 ML BAG IV ONE (20:30)
[2023-10-07] MEDS ORDERED: FAMOTIDINE. 20 MG/2 ML VIAL IV ONE ×2 (20:30→20:37)
[2023-10-07] MEDS ORDERED: HYDROMORPHONE 1 MG/1 ML DISP.SYRIN IV ONE (20:30)
[2023-10-07] MEDS ORDERED: diphenhydrAMINE 50 MG/1 ML VIAL ONE (20:36)
[2023-10-07] MEDS ORDERED: HYDROMORPHONE 1 MG/1 ML DISP.SYRIN ONE (20:37)
[2023-10-07] MEDS ORDERED: METOCLOPRAMIDE HCL 10 MG/2 ML VIAL ONE (20:37)
[2023-10-07 21:03] LABS: BASOPHILS # (AUTO) 0.1 K/UL (0.0-0.2); BASOPHILS % (AUTO) 0.7 % (0.0-2.0); HEMATOCRIT 41.6 % (36.7-47.1); HEMOGLOBIN 13.5 g/dL (12.5-16.3); LYMPHOCYTES # (AUTO) 0.7 K/uL (0.8-4.8); LYMPHOCYTES % (AUTO) 4.1 % (20.5-51.5); MEAN CORPUSCULAR HEMOGLOBIN 28.3 uug (23.8-33.4); MEAN CORPUSCULAR HGB CONC 33 g/dL (32.5-36.3); MEAN CORPUSCULAR VOLUME 87.2 fL (73.0-96.2); MONOCYTES # (AUTO) 0.3 K/uL (0.1-1.30); MONOCYTES % (AUTO) 1.8 % (0.0-11.0); NEUTROPHILS % (AUTO) 93.4 % (38.5-71.5); PLATELET COUNT (AUTO) 329 K/uL (152-348); RED BLOOD CELL COUNT(AUTO) 4.77 MIL/uL (4.06-5.63); RED CELL DISTRIBUTION WIDTH 15.1 % (12.1-16.2); WHITE BLOOD COUNT (AUTO) 18.2 K/uL (3.6-10.2)
[2023-10-07 21:05] LABS: DIFFERENTIAL COMMENT 1
[2023-10-07 21:15] LABS: CALCIUM 10.5 mg/dL (8.5-10.1); CREATININE 1.3 mg/dL (0.6-1.3); POTASSIUM 3.7 mmol/L (3.5-5.1)
[2023-10-07 21:21] LABS: ALBUMIN 4.8 g/dL (3.4-5.0); BILIRUBIN,DIRECT 0.2 mg/dL (0.0-0.2); BILIRUBIN,TOTAL 0.6 mg/dL (0.2-1.0); TOTAL PROTEIN, SERUM 9.4 g/dL (6.4-8.2)
[2023-10-07 23:13] VITALS: BP 136/84; O2SAT 96
== END 2023-10-07 23:14 | disposition home or self-care (01) ==
LOC: ER 20:02
DX: R11.2 Nausea with vomiting, unspecified (principal); R10.13 Epigastric pain; D72.829 Elevated white blood cell count, unspecified; K21.9 Gastro-esophageal reflux disease without esophagitis; E11.9 Type 2 diabetes mellitus without complications; Z88.8 Allergy status to other drugs, medicaments and biological substances; Z79.4 Long term (current) use of insulin; Z79.899 Other long term (current) drug therapy
CPT/HCPCS: 99284; 96374; 96375; 96361; 80076; 80048; 83690; 85025; 36415; J1200; J3490; J2765; J1170; J7040; A4606; A4663

== ENCOUNTER 2023-10-17 15:07 | Emergency (ER) | payer OTHER ==
[~2023-10-17] VITALS: Ht 180.3 cm; Wt 77.1 kg
[2023-10-17] MEDS ORDERED: diphenhydrAMINE 50 MG/1 ML VIAL IV ONE (20:15)
[2023-10-17] MEDS ORDERED: IV NORMAL SALINE 1000 ML BAG IV ONE (20:15)
[2023-10-17] MEDS ORDERED: HYDROMORPHONE 1 MG/1 ML DISP.SYRIN IV ONE (20:15)
[2023-10-17] MEDS ORDERED: METOCLOPRAMIDE HCL 10 MG/2 ML VIAL IV ONE (20:15)
[2023-10-17] MEDS ORDERED: HYDROMORPHONE 1 MG/1 ML DISP.SYRIN ONE (20:33)
[2023-10-17] MEDS ORDERED: diphenhydrAMINE 50 MG/1 ML VIAL ONE (20:33)
[2023-10-17] MEDS ORDERED: METOCLOPRAMIDE HCL 10 MG/2 ML VIAL ONE (20:33)
[2023-10-17 20:39] LABS: BASOPHILS # (AUTO) 0.1 K/UL (0.0-0.2); BASOPHILS % (AUTO) 0.5 % (0.0-2.0); HEMATOCRIT 38.1 % (36.7-47.1); HEMOGLOBIN 12.5 g/dL (12.5-16.3); LYMPHOCYTES # (AUTO) 0.5 K/uL (0.8-4.8); LYMPHOCYTES % (AUTO) 3.5 % (20.5-51.5); MEAN CORPUSCULAR HEMOGLOBIN 28.3 uug (23.8-33.4); MEAN CORPUSCULAR HGB CONC 33 g/dL (32.5-36.3); MONOCYTES # (AUTO) 0.3 K/uL (0.1-1.30); MONOCYTES % (AUTO) 1.6 % (0.0-11.0); NEUTROPHILS % (AUTO) 94.4 % (38.5-71.5); PLATELET COUNT (AUTO) 361 K/uL (152-348); RED BLOOD CELL COUNT(AUTO) 4.43 MIL/uL (4.06-5.63); RED CELL DISTRIBUTION WIDTH 15.1 % (12.1-16.2); WHITE BLOOD COUNT (AUTO) 15.8 K/uL (3.6-10.2)
[2023-10-17 20:42] LABS: DIFFERENTIAL COMMENT 1
[2023-10-17 20:49] LABS: CALCIUM 9.4 mg/dL (8.5-10.1); CREATININE 1.3 mg/dL (0.6-1.3); POTASSIUM 3.6 mmol/L (3.5-5.1)
[2023-10-17 20:56] LABS: ALBUMIN 4.5 g/dL (3.4-5.0); BILIRUBIN,DIRECT 0.2 mg/dL (0.0-0.2); BILIRUBIN,TOTAL 0.8 mg/dL (0.2-1.0); TOTAL PROTEIN, SERUM 8.8 g/dL (6.4-8.2)
[2023-10-17] MEDS ORDERED: ONDA4TAB5 PO (21:22)
[2023-10-17 22:23] VITALS: BP 132/73; TEMP 98.9; O2SAT 100
== END 2023-10-17 22:24 | disposition home or self-care (01) ==
LOC: ER 15:08
DX: R10.13 Epigastric pain (principal); R11.15 Cyclical vomiting syndrome unrelated to migraine; K21.9 Gastro-esophageal reflux disease without esophagitis; E11.43 Type 2 diabetes mellitus with diabetic autonomic (poly)neuropathy; K31.84 Gastroparesis; Z79.4 Long term (current) use of insulin; Z79.899 Other long term (current) drug therapy; Z90.49 Acquired absence of other specified parts of digestive tract; Z88.1 Allergy status to other antibiotic agents
CPT/HCPCS: 99284; 96374; 71045; 96375; 96361; 80076; 80048; 82009; 82962; 83690; 85025; 36415; J1200; J2765; J1170; J7040; A4606; A4663

== ENCOUNTER 2023-10-22 23:41 | Emergency (ER) | payer OTHER ==
[~2023-10-22] VITALS: Ht 180.3 cm; Wt 77.1 kg
[2023-10-22] MEDS ORDERED: ONDANSETRON 4 MG/2 ML VIAL ONE (23:57)
[2023-10-22] MEDS ORDERED: HYDROMORPHONE 2 MG/1 ML DISP.SYRIN ONE (23:57)
[2023-10-23] MEDS ORDERED: HYDROMORPHONE 1 MG/1 ML DISP.SYRIN IV ONE
[2023-10-23] MEDS ORDERED: IV NORMAL SALINE 1000 ML BAG IV ONE
[2023-10-23] MEDS ORDERED: ONDANSETRON 4 MG/2 ML VIAL IV ONE
[2023-10-23] MEDS ORDERED: ONDA4TAB5 PO (00:09)
[2023-10-23 00:35] LABS: BASOPHILS # (AUTO) 0.1 K/UL (0.0-0.2); BASOPHILS % (AUTO) 0.9 % (0.0-2.0); EOSINOPHILS # (AUTO) 0.2 K/uL (0.0-0.7); EOSINOPHILS % (AUTO) 1.8 % (0.0-7.0); HEMATOCRIT 37.7 % (36.7-47.1); HEMOGLOBIN 12.6 g/dL (12.5-16.3); LYMPHOCYTES # (AUTO) 3.3 K/uL (0.8-4.8); LYMPHOCYTES % (AUTO) 26.2 % (20.5-51.5); MEAN CORPUSCULAR HEMOGLOBIN 28.5 uug (23.8-33.4); MEAN CORPUSCULAR HGB CONC 33 g/dL (32.5-36.3); MEAN CORPUSCULAR VOLUME 85.4 fL (73.0-96.2); MONOCYTES # (AUTO) 0.9 K/uL (0.1-1.30); MONOCYTES % (AUTO) 7.3 % (0.0-11.0); NEUTROPHILS % (AUTO) 63.8 % (38.5-71.5); PLATELET COUNT (AUTO) 337 K/uL (152-348); RED BLOOD CELL COUNT(AUTO) 4.42 MIL/uL (4.06-5.63); WHITE BLOOD COUNT (AUTO) 12.5 K/uL (3.6-10.2)
[2023-10-23 00:36] LABS: ALBUMIN 4.2 g/dL (3.4-5.0); BILIRUBIN,DIRECT 0.1 mg/dL (0.0-0.2); BILIRUBIN,TOTAL 0.3 mg/dL (0.2-1.0); CALCIUM 8.9 mg/dL (8.5-10.1); CREATININE 1.2 mg/dL (0.6-1.3); DIFFERENTIAL COMMENT 1; POTASSIUM 3.9 mmol/L (3.5-5.1); TOTAL PROTEIN, SERUM 8.2 g/dL (6.4-8.2)
[2023-10-23 01:38] VITALS: BP 126/88; TEMP 98.3; O2SAT 100
== END 2023-10-23 01:00 | disposition home or self-care (01) ==
LOC: ER 23:43
DX: R11.15 Cyclical vomiting syndrome unrelated to migraine (principal); R10.2 Pelvic and perineal pain; F12.10 Cannabis abuse, uncomplicated; Z76.5 Malingerer [conscious simulation]; K21.9 Gastro-esophageal reflux disease without esophagitis; E11.43 Type 2 diabetes mellitus with diabetic autonomic (poly)neuropathy; K31.84 Gastroparesis; Z79.82 Long term (current) use of aspirin; Z79.899 Other long term (current) drug therapy; Z90.49 Acquired absence of other specified parts of digestive tract; Z88.1 Allergy status to other antibiotic agents
CPT/HCPCS: 99284; 36415; 80307; 96374; 96361; 96375; 80076; 80048; 83690; 85025; J2405; J1170; J7040; A4606; A4663

== ENCOUNTER 2023-10-30 10:23 | Emergency (ER) | payer OTHER ==
[~2023-10-30] VITALS: Ht 180.3 cm; Wt 77.1 kg
[2023-10-30] MEDS ORDERED: PROCHLORPERAZINE EDISYLATE 10 MG/2 ML VIAL ONE (11:09)
[2023-10-30] MEDS ORDERED: HYDROMORPHONE 2 MG/1 ML DISP.SYRIN ONE (11:09)
[2023-10-30] MEDS: PROCHLORPERAZINE EDISYLATE 10 MG/2 ML VIAL IV ONE (11:13)
[2023-10-30] MEDS: HYDROMORPHONE 1 MG/1 ML DISP.SYRIN IV ONE (11:13)
[2023-10-30] MEDS: IV NORMAL SALINE 1000 ML BAG IV ONE (11:13)
[2023-10-30] MEDS: IV NS 1000 ML 1,000 ML IV ONE (11:15)
[2023-10-30 11:18] LABS: BASOPHILS # (AUTO) 0.1 K/UL (0.0-0.2); BASOPHILS % (AUTO) 0.7 % (0.0-2.0); HEMATOCRIT 40.4 % (36.7-47.1); HEMOGLOBIN 13.4 g/dL (12.5-16.3); LYMPHOCYTES % (AUTO) 7.9 % (20.5-51.5); MEAN CORPUSCULAR HEMOGLOBIN 28.7 uug (23.8-33.4); MEAN CORPUSCULAR HGB CONC 33 g/dL (32.5-36.3); MEAN CORPUSCULAR VOLUME 86.8 fL (73.0-96.2); MONOCYTES # (AUTO) 0.3 K/uL (0.1-1.30); MONOCYTES % (AUTO) 2.3 % (0.0-11.0); NEUTROPHILS # (AUTO) 10.8 K/uL (1.8-8.9); NEUTROPHILS % (AUTO) 89.1 % (38.5-71.5); PLATELET COUNT (AUTO) 363 K/uL (152-348); RED BLOOD CELL COUNT(AUTO) 4.66 MIL/uL (4.06-5.63); RED CELL DISTRIBUTION WIDTH 15.4 % (12.1-16.2); WHITE BLOOD COUNT (AUTO) 12.2 K/uL (3.6-10.2)
[2023-10-30 11:32] LABS: DIFFERENTIAL COMMENT 1
[2023-10-30 11:38] LABS: SITE, VBG Other; VBG AaDO2 68.2 mmHg; VBG BASE EXCESS -1.1 mmol/L (-3-3); VBG HCO3 23.9 mmol/L (22-27); VBG MetHb 0.2 % (0.0-0.5); VBG O2HB 66.4 %; VBG PCO2 40.6 mmHg (41.0-54.0); VBG PH 7.387 (7.310-7.450); VBG PO2 < 40.5 mmHg (25.0-35.0); VBG TOTAL HEMOGLOBIN 12.4 G/dL (12.0-16.0)
[2023-10-30 11:39] LABS: MAGNESIUM 2.1 mg/dL (1.8-2.4); PHOSPHOROUS 1.7 mg/dL (2.5-4.9)
[2023-10-30 11:42] LABS: ALBUMIN 4.9 g/dL (3.4-5.0); BILIRUBIN,DIRECT 0.2 mg/dL (0.0-0.2); BILIRUBIN,TOTAL 0.8 mg/dL (0.2-1.0); CALCIUM 9.7 mg/dL (8.5-10.1); CREATININE 1.2 mg/dL (0.6-1.3); POTASSIUM 3.5 mmol/L (3.5-5.1); TOTAL PROTEIN, SERUM 9.3 g/dL (6.4-8.2)
[2023-10-30] MEDS ORDERED: PHOS250T2 PO (15:01)
[2023-10-30] MEDS ORDERED: HYDR-3980 PO (15:01)
[2023-10-30] MEDS ORDERED: PROC5TAB56 PO (15:01)
[2023-10-30 15:29] VITALS: BP 131/79; TEMP 98.3; O2SAT 98
== END 2023-10-30 15:30 | disposition home or self-care (01) ==
LOC: ER 10:23
DX: K52.9 Noninfective gastroenteritis and colitis, unspecified (principal); E83.39 Other disorders of phosphorus metabolism; E10.43 Type 1 diabetes mellitus with diabetic autonomic (poly)neuropathy; K31.84 Gastroparesis; K21.9 Gastro-esophageal reflux disease without esophagitis; Z79.4 Long term (current) use of insulin; Z79.899 Other long term (current) drug therapy; Z90.49 Acquired absence of other specified parts of digestive tract; Z88.1 Allergy status to other antibiotic agents
CPT/HCPCS: 99284; 96374; 96361; 96375; 80076; 80048; 83690; 83735; 84100; 85025; 93005; 82803; 83605; 36600; J0780; J1170; J7040; A4606; A4663

== ENCOUNTER 2023-11-17 07:37 | Emergency (ER) | payer OTHER ==
[~2023-11-17] VITALS: Ht 180.3 cm; Wt 77.1 kg
[~2023-11-17 07:37] MED LIST changes: +HYDR-3980 PO; +PHOS250T2 PO; +PROC5TAB56 PO
[2023-11-17 07:47] VITALS: O2SAT 99
[2023-11-17] MEDS: IV NORMAL SALINE 1000 ML BAG IV ONE (08:00)
[2023-11-17] MEDS ORDERED: HYDROMORPHONE 2 MG/1 ML DISP.SYRIN ONE (08:17)
[2023-11-17] MEDS ORDERED: PROCHLORPERAZINE EDISYLATE 10 MG/2 ML VIAL ONE (08:17)
[2023-11-17] MEDS: PROCHLORPERAZINE EDISYLATE 10 MG/2 ML VIAL IV ONE (08:25)
[2023-11-17] MEDS: IV NS 1000 ML 1,000 ML IV ONE (08:25)
[2023-11-17] MEDS: HYDROMORPHONE 1 MG/1 ML DISP.SYRIN IV ONE (08:27)
[2023-11-17 08:34] LABS: BASOPHILS # (AUTO) 0.1 K/UL (0.0-0.2); BASOPHILS % (AUTO) 1.2 % (0.0-2.0); EOSINOPHILS # (AUTO) 0.1 K/uL (0.0-0.7); EOSINOPHILS % (AUTO) 1.6 % (0.0-7.0); HEMATOCRIT 41.9 % (36.7-47.1); HEMOGLOBIN 13.9 g/dL (12.5-16.3); LYMPHOCYTES # (AUTO) 2.7 K/uL (0.8-4.8); LYMPHOCYTES % (AUTO) 31.3 % (20.5-51.5); MEAN CORPUSCULAR HEMOGLOBIN 28.9 uug (23.8-33.4); MEAN CORPUSCULAR HGB CONC 33 g/dL (32.5-36.3); MONOCYTES # (AUTO) 0.5 K/uL (0.1-1.30); MONOCYTES % (AUTO) 5.8 % (0.0-11.0); NEUTROPHILS # (AUTO) 5.2 K/uL (1.8-8.9); NEUTROPHILS % (AUTO) 60.1 % (38.5-71.5); PLATELET COUNT (AUTO) 347 K/uL (152-348); RED BLOOD CELL COUNT(AUTO) 4.82 MIL/uL (4.06-5.63); RED CELL DISTRIBUTION WIDTH 15.2 % (12.1-16.2); WHITE BLOOD COUNT (AUTO) 8.7 K/uL (3.6-10.2)
[2023-11-17] MEDS: diphenhydrAMINE 50 MG/1 ML VIAL IV ONE (08:40)
[2023-11-17] MEDS ORDERED: diphenhydrAMINE 50 MG/1 ML VIAL ONE (08:42)
[2023-11-17 08:49] LABS: DIFFERENTIAL COMMENT 1
[2023-11-17 08:59] LABS: ALBUMIN 4.5 g/dL (3.4-5.0); BILIRUBIN,DIRECT 0.1 mg/dL (0.0-0.2); BILIRUBIN,TOTAL 0.5 mg/dL (0.2-1.0); CREATININE 1.3 mg/dL (0.6-1.3); POTASSIUM 5.4 mmol/L (3.5-5.1); TOTAL PROTEIN, SERUM 9.4 g/dL (6.4-8.2)
[2023-11-17] MEDS: INSULIN REGULAR, HUMAN 300 UNIT/3 ML VIAL IV ONE (09:01)
[2023-11-17 09:20] LABS: LACTIC ACID 2.7 mmol/L (0.4-2.0)
[2023-11-17 09:29] LABS: PHOSPHOROUS 2.6 mg/dL (2.5-4.9)
[2023-11-17 09:39] LABS: ACETONE, SERUM NEGATIVE (NEGATIVE)
[2023-11-17] MEDS ORDERED: FLAS1KIT2 TP (11:20)
[2023-11-17] MEDS ORDERED: ACET1TAB23 PO (11:20)
[2023-11-17] MEDS ORDERED: ONDA4TAB5 PO (11:20)
[2023-11-17] MEDS ORDERED: FLAS1EAC2 TP (11:20)
== END 2023-11-17 11:30 | disposition home or self-care (01) ==
LOC: ER 07:38
DX: R10.84 Generalized abdominal pain (principal); E11.65 Type 2 diabetes mellitus with hyperglycemia; R11.2 Nausea with vomiting, unspecified; K21.9 Gastro-esophageal reflux disease without esophagitis; E11.43 Type 2 diabetes mellitus with diabetic autonomic (poly)neuropathy; K31.84 Gastroparesis; Z90.49 Acquired absence of other specified parts of digestive tract; Z79.899 Other long term (current) drug therapy; Z79.4 Long term (current) use of insulin; Z88.1 Allergy status to other antibiotic agents
CPT/HCPCS: 99284; 96374; 96375; 96361; 80076; 80048; 82009; 82962 ×2; 83690; 84100; 85025; 74021; 83605; J1200; J0780; J1170; J7040 ×2; A4606; A4663

== ENCOUNTER 2024-01-08 16:14 | Emergency (ER) | payer MEDICAID, OTHER ==
[~2024-01-08] VITALS: Ht 180.3 cm; Wt 77.1 kg
[~2024-01-08 16:14] MED LIST changes: +ACET1TAB23 PO; +FLAS1EAC2 TP; +FLAS1KIT2 TP
[2024-01-08] MEDS ORDERED: ONDANSETRON 4 MG/2 ML VIAL ONE (16:50)
[2024-01-08] MEDS ORDERED: diphenhydrAMINE 50 MG/1 ML VIAL ONE (16:50)
[2024-01-08] MEDS ORDERED: HYDROMORPHONE 1 MG/1 ML DISP.SYRIN ONE (16:51)
[2024-01-08] MEDS: IV NORMAL SALINE 1000 ML BAG IV ONE (16:54)
[2024-01-08] MEDS: ONDANSETRON 4 MG/2 ML VIAL IV ONE (16:54)
[2024-01-08] MEDS: HYDROMORPHONE 1 MG/1 ML DISP.SYRIN IV ONE (16:54)
[2024-01-08] MEDS: diphenhydrAMINE 50 MG/1 ML VIAL IV ONE (16:54)
[2024-01-08 16:56] LABS: ABG BASE EXCESS -1.9 mmol/L (-2.0-2.0); ABG HCO3 22.6 mmol/L (22.0-26.0); ABG PCO2 37.8 mmHg (35.0-48.0); ABG PH 7.395 (7.340-7.440); ABG SITE VBG - N/A; ABG TOTAL HEMOGLOBIN 12.6 G/dL (14.0-18.0); AaDO2 72.9 mmHg; COHb 0.4 % (0.0-3.9); MetHb 0.4 % (0.0-1.5); O2Hb 73.2 % (94.0-97.0)
[2024-01-08 17:05] LABS: BASOPHILS # (AUTO) 0.1 K/UL (0.0-0.2); BASOPHILS % (AUTO) 1.2 % (0.0-2.0); EOSINOPHILS # (AUTO) 0.1 K/uL (0.0-0.7); EOSINOPHILS % (AUTO) 1.5 % (0.0-7.0); HEMATOCRIT 34.9 % (36.7-47.1); HEMOGLOBIN 11.6 g/dL (12.5-16.3); LYMPHOCYTES # (AUTO) 1.5 K/uL (0.8-4.8); LYMPHOCYTES % (AUTO) 22.2 % (20.5-51.5); MEAN CORPUSCULAR HEMOGLOBIN 28.2 uug (23.8-33.4); MEAN CORPUSCULAR HGB CONC 33 g/dL (32.5-36.3); MEAN CORPUSCULAR VOLUME 84.7 fL (73.0-96.2); MONOCYTES # (AUTO) 0.6 K/uL (0.1-1.30); MONOCYTES % (AUTO) 9.1 % (0.0-11.0); NEUTROPHILS # (AUTO) 4.4 K/uL (1.8-8.9); PLATELET COUNT (AUTO) 319 K/uL (152-348); RED BLOOD CELL COUNT(AUTO) 4.13 MIL/uL (4.06-5.63); WHITE BLOOD COUNT (AUTO) 6.7 K/uL (3.6-10.2)
[2024-01-08 17:06] LABS: DIFFERENTIAL COMMENT 1
[2024-01-08 17:16] LABS: CREATININE 1.5 mg/dL (0.6-1.3); POTASSIUM 4.3 mmol/L (3.5-5.1)
[2024-01-08 17:22] LABS: ALBUMIN 3.6 g/dL (3.4-5.0); BILIRUBIN,DIRECT 0.1 mg/dL (0.0-0.2); BILIRUBIN,TOTAL 0.3 mg/dL (0.2-1.0); TOTAL PROTEIN, SERUM 7.3 g/dL (6.4-8.2)
[2024-01-08] MEDS ORDERED: INSULIN REGULAR, HUMAN 300 UNIT/3 ML VIAL ONE (18:07)
[2024-01-08] MEDS: INSULIN REGULAR, HUMAN 300 UNIT/3 ML VIAL IV ONE (18:10)
[2024-01-08 18:46] VITALS: BP 124/76; O2SAT 98
== END 2024-01-08 18:47 | disposition home or self-care (01) ==
LOC: ER 16:16
DX: E10.43 Type 1 diabetes mellitus with diabetic autonomic (poly)neuropathy (principal); K31.84 Gastroparesis; R11.15 Cyclical vomiting syndrome unrelated to migraine; K21.9 Gastro-esophageal reflux disease without esophagitis; Z90.49 Acquired absence of other specified parts of digestive tract; Z79.899 Other long term (current) drug therapy; Z79.4 Long term (current) use of insulin; Z88.1 Allergy status to other antibiotic agents
CPT/HCPCS: 99284; 96374; 96375; 96361; 80076; 80048; 82009; 83690; 85025; 93005; J1200; J2405; J1170; J1815; J7040; 36415; A4606; A4663

== ENCOUNTER 2024-03-05 17:25 | Emergency (ER) | payer MEDICAID ==
[~2024-03-05] VITALS: Ht 180.3 cm; Wt 77.1 kg
[2024-03-05] MEDS ORDERED: METOCLOPRAMIDE HCL 10 MG/2 ML VIAL ONE (17:47)
[2024-03-05] MEDS ORDERED: ONDANSETRON 4 MG/2 ML VIAL ONE ×3 (17:47→21:25)
[2024-03-05] MEDS ORDERED: MORPHINE SULFATE 4 MG/1 ML DISP.SYRIN ONE ×2 (17:47→18:22)
[2024-03-05] MEDS: IV NORMAL SALINE 1000 ML BAG IV ONE (17:51)
[2024-03-05] MEDS: ONDANSETRON 4 MG/2 ML VIAL IV ONE ×2 (17:52→18:25)
[2024-03-05] MEDS: MORPHINE SULFATE 4 MG/1 ML DISP.SYRIN IV ONE ×2 (17:52→18:25)
[2024-03-05] MEDS: METOCLOPRAMIDE HCL 10 MG/2 ML VIAL IV ONE ×2 (17:52→21:23)
[2024-03-05 17:57] LABS: ABG BASE EXCESS 0.2 mmol/L (-2.0-2.0); ABG HCO3 20.2 mmol/L (22.0-26.0); ABG PCO2 21.4 mmHg (35.0-48.0); ABG PH 7.593 (7.340-7.440); ABG PO2 110.8 mmHg (75.0-100.0); ABG SITE LEFT RADIAL; ABG TOTAL HEMOGLOBIN 12.2 G/dL (14.0-18.0); AaDO2 98.7 mmHg; MetHb 0.3 % (0.0-1.5); O2Hb 98.5 % (94.0-97.0)
[2024-03-05] MEDS ORDERED: diphenhydrAMINE 50 MG/1 ML VIAL ONE (18:08)
[2024-03-05 18:14] LABS: BASOPHILS # (AUTO) 0.1 K/UL (0.0-0.2); BASOPHILS % (AUTO) 0.6 % (0.0-2.0); HEMATOCRIT 35.9 % (36.7-47.1); HEMOGLOBIN 11.6 g/dL (12.5-16.3); LYMPHOCYTES # (AUTO) 0.6 K/uL (0.8-4.8); LYMPHOCYTES % (AUTO) 3.5 % (20.5-51.5); MEAN CORPUSCULAR HEMOGLOBIN 26.7 uug (23.8-33.4); MEAN CORPUSCULAR HGB CONC 32 g/dL (32.5-36.3); MEAN CORPUSCULAR VOLUME 82.7 fL (73.0-96.2); MONOCYTES # (AUTO) 0.3 K/uL (0.1-1.30); MONOCYTES % (AUTO) 1.9 % (0.0-11.0); NEUTROPHILS # (AUTO) 15.5 K/uL (1.8-8.9); PLATELET COUNT (AUTO) 348 K/uL (152-348); RED BLOOD CELL COUNT(AUTO) 4.34 MIL/uL (4.06-5.63); RED CELL DISTRIBUTION WIDTH 17.4 % (12.1-16.2); WHITE BLOOD COUNT (AUTO) 16.5 K/uL (3.6-10.2)
[2024-03-05] MEDS: diphenhydrAMINE 50 MG/1 ML VIAL IV ONE ×2 (18:16→18:17)
[2024-03-05 18:22] LABS: DIFFERENTIAL COMMENT 1
[2024-03-05 18:23] LABS: CALCIUM 9.6 mg/dL (8.5-10.1); CREATININE 1.1 mg/dL (0.6-1.3); POTASSIUM 3.8 mmol/L (3.5-5.1)
[2024-03-05 18:30] LABS: MAGNESIUM 1.8 mg/dL (1.8-2.4); PHOSPHOROUS 1.2 mg/dL (2.5-4.9)
[2024-03-05 18:36] LABS: LACTIC ACID 2.2 mmol/L (0.4-2.0)
[2024-03-05 18:37] LABS: ALBUMIN 4.7 g/dL (3.4-5.0); BILIRUBIN,DIRECT 0.2 mg/dL (0.0-0.2); BILIRUBIN,TOTAL 0.9 mg/dL (0.2-1.0); TOTAL PROTEIN, SERUM 8.9 g/dL (6.4-8.2)
[2024-03-05 19:50] LABS: *BILIRUBIN,URIN NEGATIVE (NEGATIVE); *BLOOD, URINE 2+ (NEGATIVE); *CLARITY,URINE CLOUDY (CLEAR); *COLOR,URINE YELLOW (YELLOW); *KETONES,URINE 3+ (NEGATIVE); *UROBILINOGEN,URINE 0.2 E.U./dl (NORMAL); LEUKOCYTE ESTERASE ,URINE NEGATIVE (NEGATIVE); NITRITE, URINE NEGATIVE (NEGATIVE); PH,URINE 8.5 (5.0-8.0)
[2024-03-05] MEDS: IV NS 1000 ML 1,000 ML IV ONE (20:10)
[2024-03-05 20:46] LABS: *PROTEIN,URINE 3+ (NEGATIVE); UGLUCOSE 2+ (NEGATIVE)
[2024-03-05] MEDS ORDERED: ONDA4TAB5 PO (20:53)
[2024-03-05 20:57] LABS: *AMPHETAMINE, URINE NEGATIVE (NEGATIVE); *BARBITURATE, URINE NEGATIVE (NEGATIVE); *BENZODIAZEPINE, URINE NEGATIVE (NEGATIVE); *CANNABINOID, URINE POSITIVE (NEGATIVE); *COCCAINE, URINE NEGATIVE (NEGATIVE); *OPIATE, URINE POSITIVE (NEGATIVE); *PHENCYCLIDINE SCREEN,URINE NEGATIVE (NEGATIVE); FENTANYL, URINE NEGATIVE (NEGATIVE)
[2024-03-05] MEDS: PROMETHAZINE HCL INJ 12.5 MG in IV DEXTROSE 5% 50 ML IM STA (21:22)
[2024-03-05] MEDS: KETOROLAC TROMETHAMINE 30 MG INJ IVP ONE (21:29)
[2024-03-05 21:50] VITALS: BP 147/83; TEMP 98.8; O2SAT 100
[2024-03-05 21:57] LABS: RBC,URINE 80-100 /HPF (0-3); WBC,URINE 0-3 /HPF (0-3)
[2024-03-08] MEDS ORDERED: ONDA4TAB5 PO (10:04)
== END 2024-03-05 21:35 | disposition home or self-care (01) ==
LOC: ER 17:27
DX: R10.9 Unspecified abdominal pain (principal); R11.2 Nausea with vomiting, unspecified; R19.7 Diarrhea, unspecified; E10.65 Type 1 diabetes mellitus with hyperglycemia; K21.9 Gastro-esophageal reflux disease without esophagitis; Z90.49 Acquired absence of other specified parts of digestive tract; Z79.899 Other long term (current) drug therapy; Z88.1 Allergy status to other antibiotic agents
CPT/HCPCS: 99285; 74176; 96374; 96361; 96375; 71045; 80076; 80048; 81001; 82962 ×2; 83690; 83735; 84100; 85025; 87040 ×2; 36415; 93005; 96376; 83605 ×2; 80307; 36600; J1200; J2765; J2405 ×3; J2550; J2270 ×2; J7040 ×2; A4606; A4663

== ENCOUNTER 2024-03-06 18:51 | Inpatient (IN) | payer MEDICAID ==
[~2024-03-06] VITALS: Ht 180.3 cm; Wt 77.1 kg
[2024-03-06] MEDS ORDERED: ONDANSETRON 4 MG/2 ML VIAL ONE (19:21)
[2024-03-06] MEDS: IV NS 1000 ML 1,000 ML IV ONE ×2 (19:22→20:05)
[2024-03-06] MEDS: ONDANSETRON 4 MG/2 ML VIAL IV ONE (19:22)
[2024-03-06 19:29] LABS: BASOPHILS # (AUTO) 0.1 K/UL (0.0-0.2); BASOPHILS % (AUTO) 0.4 % (0.0-2.0); EOSINOPHILS % (AUTO) 0.1 % (0.0-7.0); HEMATOCRIT 40.1 % (36.7-47.1); HEMOGLOBIN 12.6 g/dL (12.5-16.3); LYMPHOCYTES # (AUTO) 2.1 K/uL (0.8-4.8); LYMPHOCYTES % (AUTO) 14.3 % (20.5-51.5); MEAN CORPUSCULAR HEMOGLOBIN 25.9 uug (23.8-33.4); MEAN CORPUSCULAR HGB CONC 31 g/dL (32.5-36.3); MEAN CORPUSCULAR VOLUME 82.5 fL (73.0-96.2); MONOCYTES % (AUTO) 6.9 % (0.0-11.0); NEUTROPHILS # (AUTO) 11.4 K/uL (1.8-8.9); NEUTROPHILS % (AUTO) 78.3 % (38.5-71.5); PLATELET COUNT (AUTO) 431 K/uL (152-348); RED BLOOD CELL COUNT(AUTO) 4.86 MIL/uL (4.06-5.63); RED CELL DISTRIBUTION WIDTH 17.8 % (12.1-16.2); WHITE BLOOD COUNT (AUTO) 14.5 K/uL (3.6-10.2)
[2024-03-06 19:32] LABS: DIFFERENTIAL COMMENT 1
[2024-03-06 19:39] LABS: ALANINE AMINOTRANSFERASE 17 U/L (16-63); ALBUMIN 4.3 g/dL (3.4-5.0); ALKALINE PHOSPHATASE 119 U/L (50-136); ASPARTATE AMINOTRANSFERASE 24 U/L (15-37); BILIRUBIN,TOTAL 0.9 mg/dL (0.2-1.0); CALCIUM 9.4 mg/dL (8.5-10.1); CARBON DIOXIDE 23 mmol/L (21-32); CHLORIDE 100 mmol/L (98-107); CREATININE 1.4 mg/dL (0.6-1.3); GLUCOSE 301 mg/dL (74-106); LIPASE 17 U/L (16-77); POTASSIUM 3.3 mmol/L (3.5-5.1); SODIUM SERUM 137 mmol/L (136-145); TOTAL PROTEIN, SERUM 8.6 g/dL (6.4-8.2); UREA NITROGEN, BLOOD 19 mg/dL (7-18)
[2024-03-06] MEDS ORDERED: MORPHINE SULFATE 2 MG/1 ML DISP.SYRIN ONE (19:41)
[2024-03-06] MEDS: MORPHINE SULFATE 2 MG/1 ML DISP.SYRIN IV ONE (19:42)
[2024-03-06 19:55] LABS: LACTIC ACID 2.1 mmol/L (0.4-2.0)
[2024-03-06] MEDS ORDERED: diphenhydrAMINE 50 MG/1 ML VIAL ONE (19:58)
[2024-03-06 20:01] LABS: ACETONE, SERUM NEGATIVE (NEGATIVE)
[2024-03-06] MEDS: diphenhydrAMINE 50 MG/1 ML VIAL IV ONE (20:01)
[2024-03-06] MEDS ORDERED: POTASSIUM CHLORIDE 50 ML ONE (20:04)
[2024-03-06] MEDS: POTASSIUM CHLORIDE 50 ML IV SCH (20:05)
[2024-03-06 20:10] LABS: ETHANOL < 3 MG/DL (0-10)
[2024-03-06] MEDS ORDERED: INSULIN REGULAR, HUMAN 300 UNITS/3 ML VIAL SQ PRN (20:45)
[2024-03-06] MEDS ORDERED: ACETAMINOPHEN 325 MG TABLET PO PRN (20:45)
[2024-03-06] MEDS ORDERED: METOCLOPRAMIDE HCL 10 MG/2 ML VIAL IV SCH (20:45)
[2024-03-06] MEDS ORDERED: INSULIN REGULAR, HUMAN 300 UNIT/3 ML VIAL SQ PRN (20:45)
[2024-03-06] MEDS: MORPHINE SULFATE 2 MG/1 ML DISP.SYRIN IVP PRN (23:13)
[2024-03-06] MEDS: IV NS 1000 ML 1,000 ML IV SCH (23:14)
[2024-03-06] MEDS: BLOOD SUGAR DIAGNOSTIC 1 EACH STRIP VI SCH (23:19)
[2024-03-06 23:51] VITALS: BP 165/97; TEMP 98; O2SAT 100
[2024-03-07] VITALS (7 sets, daily range): BP systolic 127–183; BP diastolic 64–103; TEMP 97.6–98.2; O2SAT 97–100
[2024-03-07] MEDS: ONDANSETRON 4 MG/2 ML VIAL IV PRN (03:42)
[2024-03-07] MEDS: DEXTROSE 50% 50 ML DISP.SYRIN IV PRN ×2 (06:30→21:00)
[2024-03-07 07:05] LABS: BASOPHILS % (AUTO) 0.4 % (0.0-2.0); EOSINOPHILS % (AUTO) 0.1 % (0.0-7.0); HEMOGLOBIN 10.4 g/dL (12.5-16.3); LYMPHOCYTES # (AUTO) 1.7 K/uL (0.8-4.8); LYMPHOCYTES % (AUTO) 14.9 % (20.5-51.5); MEAN CORPUSCULAR HEMOGLOBIN 26.8 uug (23.8-33.4); MEAN CORPUSCULAR HGB CONC 33 g/dL (32.5-36.3); MEAN CORPUSCULAR VOLUME 82.3 fL (73.0-96.2); MONOCYTES # (AUTO) 0.9 K/uL (0.1-1.30); MONOCYTES % (AUTO) 8.2 % (0.0-11.0); NEUTROPHILS # (AUTO) 8.6 K/uL (1.8-8.9); NEUTROPHILS % (AUTO) 76.4 % (38.5-71.5); PLATELET COUNT (AUTO) 310 K/uL (152-348); RED BLOOD CELL COUNT(AUTO) 3.89 MIL/uL (4.06-5.63); RED CELL DISTRIBUTION WIDTH 17.4 % (12.1-16.2); WHITE BLOOD COUNT (AUTO) 11.3 K/uL (3.6-10.2)
[2024-03-07 07:11] LABS: DIFFERENTIAL COMMENT 1
[2024-03-07 07:15] LABS: ALBUMIN 3.6 g/dL (3.4-5.0); BILIRUBIN,TOTAL 0.6 mg/dL (0.2-1.0); CALCIUM 8.4 mg/dL (8.5-10.1); PHOSPHOROUS 1.4 mg/dL (2.5-4.9); TOTAL PROTEIN, SERUM 7.2 g/dL (6.4-8.2)
[2024-03-07] MEDS: POTASSIUM PHOSPHATE MM 15 MMOL in IV NORMAL SALINE 250 ML IV SCH (08:42)
[2024-03-07] MEDS: IV NS 1000 ML 1,000 ML IV PRN (08:49)
[2024-03-07] MEDS: HEPARIN SODIUM,PORCINE 5,000 UNITS/ML VIAL SQ SCH (08:53)
[2024-03-07] MEDS: LORAZEPAM 1 MG TABLET PO PRN (09:35)
[2024-03-07] MEDS ORDERED: INSU100V7 SQ (11:40)
[2024-03-07] MEDS ORDERED: INSULIN REGULAR, HUMAN 300 UNIT/3 ML VIAL SQ PRN (13:45)
[2024-03-07] MEDS: LORAZEPAM 2 MG/1 ML VIAL IV PRN (15:44)
[2024-03-07] MEDS: BLOOD SUGAR DIAGNOSTIC 1 EACH STRIP VI SCH (16:30)
[2024-03-08] VITALS: BP 154/107; TEMP 98.2; O2SAT 92
[2024-03-08 04:45] VITALS: BP 140/90; TEMP 98; O2SAT 100
[2024-03-08 07:04] LABS: BASOPHILS # (AUTO) 0.1 K/UL (0.0-0.2); BASOPHILS % (AUTO) 0.7 % (0.0-2.0); EOSINOPHILS % (AUTO) 0.3 % (0.0-7.0); HEMATOCRIT 33.5 % (36.7-47.1); HEMOGLOBIN 10.9 g/dL (12.5-16.3); LYMPHOCYTES # (AUTO) 2.1 K/uL (0.8-4.8); LYMPHOCYTES % (AUTO) 23.9 % (20.5-51.5); MEAN CORPUSCULAR HEMOGLOBIN 26.7 uug (23.8-33.4); MEAN CORPUSCULAR HGB CONC 32 g/dL (32.5-36.3); MEAN CORPUSCULAR VOLUME 82.4 fL (73.0-96.2); MONOCYTES # (AUTO) 0.9 K/uL (0.1-1.30); NEUTROPHILS # (AUTO) 5.7 K/uL (1.8-8.9); NEUTROPHILS % (AUTO) 65.1 % (38.5-71.5); PLATELET COUNT (AUTO) 313 K/uL (152-348); RED BLOOD CELL COUNT(AUTO) 4.06 MIL/uL (4.06-5.63); RED CELL DISTRIBUTION WIDTH 17.6 % (12.1-16.2); WHITE BLOOD COUNT (AUTO) 8.8 K/uL (3.6-10.2)
[2024-03-08 07:10] LABS: DIFFERENTIAL COMMENT 1
[2024-03-08 07:11] LABS: CALCIUM 8.5 mg/dL (8.5-10.1); MAGNESIUM 1.8 mg/dL (1.8-2.4); PHOSPHOROUS 2.6 mg/dL (2.5-4.9); POTASSIUM 3.2 mmol/L (3.5-5.1)
[2024-03-08 08:26] VITALS: BP 182/116; TEMP 97.9; O2SAT 100
[2024-03-08 08:46] VITALS: BP 182/116
[2024-03-08] MEDS: hydrALAZINE HCL 20 MG/1 ML VIAL IV PRN (08:46)
[2024-03-08] MEDS: POTASSIUM CHLORIDE 20 MEQ TAB.PRT.SR PO ONE (09:40)
[2024-03-08] MEDS ORDERED: ONDA4TAB5 PO (10:04)
== END 2024-03-08 11:15 | disposition home or self-care (01) | DRG 48 ==
LOC: ER 18:53 → TELE3 22:44
PROVIDERS: ADMIT Internal Medicine; ATTEND Internal Medicine
DX: E10.43 Type 1 diabetes mellitus with diabetic autonomic (poly)neuropathy (principal); N17.0 Acute kidney failure with tubular necrosis; D72.829 Elevated white blood cell count, unspecified; D75.839 Thrombocytosis, unspecified; E10.65 Type 1 diabetes mellitus with hyperglycemia; E86.0 Dehydration; K31.84 Gastroparesis; R11.15 Cyclical vomiting syndrome unrelated to migraine; E87.6 Hypokalemia; Z79.4 Long term (current) use of insulin
CPT/HCPCS: 36415; 83605; 83690; 83735; 84100; 85025; 87040; A4606; A4663; G0378; G0480; J0360; J1200; J1644; J1815; J2060; J2270; J2405; J3480; J3490; J7040

== ENCOUNTER 2024-04-11 12:21 | Emergency (ER) | payer MEDICAID ==
[~2024-04-11] VITALS: Ht 180.3 cm; Wt 80.7 kg
[~2024-04-11 12:21] MED LIST changes: -ACET1TAB23 PO; -HYDR-3980 PO; +INSU100V7 SQ; -INSU3INS6 SQ; -METO-295 PO; -PANT20TA2 PO; -PHOS250T2 PO; -PROC5TAB56 PO
[2024-04-11] MEDS ORDERED: MORPHINE SULFATE 2 MG/1 ML DISP.SYRIN ONE (12:27)
[2024-04-11] MEDS ORDERED: ONDANSETRON 4 MG/2 ML VIAL ONE ×3 (12:28→15:08)
[2024-04-11] MEDS ORDERED: MORPHINE SULFATE 4 MG/1 ML DISP.SYRIN ONE ×2 (12:28→15:07)
[2024-04-11] MEDS ORDERED: diphenhydrAMINE 50 MG/1 ML VIAL ONE (12:42)
[2024-04-11 12:44] LABS: ABG BASE EXCESS 2.3 mmol/L (-2.0-2.0); ABG PCO2 33.3 mmHg (35.0-48.0); ABG PH 7.494 (7.340-7.440); ABG SITE VBG - N/A; ABG TOTAL HEMOGLOBIN 13.8 G/dL (14.0-18.0); AaDO2 78.7 mmHg; MetHb 0.1 % (0.0-1.5); O2Hb 77.5 % (94.0-97.0)
[2024-04-11 12:45] LABS: BASOPHILS # (AUTO) 0.1 K/UL (0.0-0.2); BASOPHILS % (AUTO) 0.7 % (0.0-2.0); EOSINOPHILS # (AUTO) 0.1 K/uL (0.0-0.7); EOSINOPHILS % (AUTO) 0.6 % (0.0-7.0); HEMATOCRIT 39.7 % (36.7-47.1); HEMOGLOBIN 12.5 g/dL (12.5-16.3); LYMPHOCYTES # (AUTO) 2.8 K/uL (0.8-4.8); LYMPHOCYTES % (AUTO) 24.2 % (20.5-51.5); MEAN CORPUSCULAR HGB CONC 31 g/dL (32.5-36.3); MEAN CORPUSCULAR VOLUME 82.8 fL (73.0-96.2); MONOCYTES # (AUTO) 0.6 K/uL (0.1-1.30); NEUTROPHILS # (AUTO) 8.1 K/uL (1.8-8.9); NEUTROPHILS % (AUTO) 69.5 % (38.5-71.5); PLATELET COUNT (AUTO) 358 K/uL (152-348); RED BLOOD CELL COUNT(AUTO) 4.79 MIL/uL (4.06-5.63); RED CELL DISTRIBUTION WIDTH 17.5 % (12.1-16.2); WHITE BLOOD COUNT (AUTO) 11.7 K/uL (3.6-10.2)
[2024-04-11 12:56] LABS: CALCIUM 10.2 mg/dL (8.5-10.1); CARBON DIOXIDE 25 mmol/L (21-32); CHLORIDE 101 mmol/L (98-107); CREATININE 1.3 mg/dL (0.6-1.3); GLUCOSE 230 mg/dL (74-106); POTASSIUM 3.7 mmol/L (3.5-5.1); SODIUM SERUM 141 mmol/L (136-145); UREA NITROGEN, BLOOD 15 mg/dL (7-18)
[2024-04-11 12:58] LABS: AMMONIA < 10 umol/L (11-32)
[2024-04-11 12:59] LABS: DIFFERENTIAL COMMENT 1
[2024-04-11] MEDS: IV NORMAL SALINE 1000 ML BAG IV ONE ×2 (12:59→13:37)
[2024-04-11] MEDS: MORPHINE SULFATE 2 MG/1 ML DISP.SYRIN IV ONE (13:00)
[2024-04-11] MEDS: ONDANSETRON 4 MG/2 ML VIAL IV ONE ×3 (13:00→15:15)
[2024-04-11 13:01] LABS: ALANINE AMINOTRANSFERASE 22 U/L (16-63); ALBUMIN 4.3 g/dL (3.4-5.0); ALKALINE PHOSPHATASE 119 U/L (50-136); ASPARTATE AMINOTRANSFERASE 22 U/L (15-37); BILIRUBIN,DIRECT 0.1 mg/dL (0.0-0.2); BILIRUBIN,TOTAL 0.5 mg/dL (0.2-1.0); LIPASE 21 U/L (16-77); TOTAL PROTEIN, SERUM 8.3 g/dL (6.4-8.2)
[2024-04-11] MEDS: diphenhydrAMINE 50 MG/1 ML VIAL IV ONE (13:01)
[2024-04-11 13:06] LABS: LACTIC ACID 3.5 mmol/L (0.4-2.0)
[2024-04-11] MEDS ORDERED: LORAZEPAM 2 MG/1 ML VIAL ONE (13:29)
[2024-04-11] MEDS: LORAZEPAM 2 MG/1 ML VIAL IV ONE (13:37)
[2024-04-11 13:46] LABS: *BILIRUBIN,URIN NEGATIVE (NEGATIVE); *CLARITY,URINE CLEAR (CLEAR); *COLOR,URINE YELLOW (YELLOW); *KETONES,URINE 1+ (NEGATIVE); *UROBILINOGEN,URINE 0.2 E.U./dl (NORMAL); LEUKOCYTE ESTERASE ,URINE NEGATIVE (NEGATIVE); NITRITE, URINE NEGATIVE (NEGATIVE); PH,URINE 8.5 (5.0-8.0); UGLUCOSE TRACE (NEGATIVE)
[2024-04-11 13:51] LABS: *BLOOD, URINE TRACE (NEGATIVE); *PROTEIN,URINE 3+ (NEGATIVE)
[2024-04-11 14:58] LABS: BACTERIA,URINE NONE SEEN /HPF (NONE SEEN); RBC,URINE 0-3 /HPF (0-3); SQUAMOUS EPITHELIAL CELL,UR FEW /HPF (NONE SEEN); WBC,URINE 0-3 /HPF (0-3)
[2024-04-11] MEDS: MORPHINE SULFATE 4 MG/1 ML DISP.SYRIN IV ONE (15:15)
[2024-04-11] MEDS ORDERED: diphenhydrAMINE 50 MG/1 ML VIAL IM ONE (17:00)
[2024-04-11] MEDS ORDERED: HALOPERIDOL LACTATE 5 MG/1 ML VIAL IM ONE (17:00)
[2024-04-11] MEDS ORDERED: ONDA-104 PO (17:06)
[2024-04-11] MEDS ORDERED: TRAM50TA2 PO (17:06)
[2024-04-11] MEDS ORDERED: LORA0.5T48 PO (17:32)
[2024-04-11 18:03] VITALS: BP 132/72; TEMP 98.2; O2SAT 97
== END 2024-04-11 18:05 | disposition home or self-care (01) ==
LOC: ER 12:21
DX: R10.9 Unspecified abdominal pain (principal); R11.2 Nausea with vomiting, unspecified; K21.9 Gastro-esophageal reflux disease without esophagitis; E11.9 Type 2 diabetes mellitus without complications; Z79.4 Long term (current) use of insulin; Z90.49 Acquired absence of other specified parts of digestive tract; Z79.899 Other long term (current) drug therapy; Z88.1 Allergy status to other antibiotic agents
CPT/HCPCS: 36415; 71045; 83605; 83690; 85025; 87040; 93005; A4606; A4663; J1200; J2060; J2270; J2405; J7040

== ENCOUNTER 2024-05-01 11:26 | Emergency (ER) | payer MEDICAID, OTHER ==
[~2024-05-01] VITALS: Ht 177.8 cm; Wt 68.0 kg
[~2024-05-01 11:26] MED LIST changes: +LORA0.5T48 PO; +ONDA-104 PO; +TRAM50TA2 PO
[2024-05-01] MEDS: IV NORMAL SALINE 1000 ML BAG IV ONE (11:53)
[2024-05-01 12:09] LABS: BASOPHILS # (AUTO) 0.1 K/UL (0.0-0.2); EOSINOPHILS % (AUTO) 0.2 % (0.0-7.0); HEMATOCRIT 38.7 % (36.7-47.1); HEMOGLOBIN 12.3 g/dL (12.5-16.3); LYMPHOCYTES # (AUTO) 1.3 K/uL (0.8-4.8); LYMPHOCYTES % (AUTO) 11.7 % (20.5-51.5); MEAN CORPUSCULAR HEMOGLOBIN 26.2 uug (23.8-33.4); MEAN CORPUSCULAR HGB CONC 32 g/dL (32.5-36.3); MEAN CORPUSCULAR VOLUME 82.5 fL (73.0-96.2); MONOCYTES # (AUTO) 0.4 K/uL (0.1-1.30); MONOCYTES % (AUTO) 3.8 % (0.0-11.0); NEUTROPHILS # (AUTO) 8.9 K/uL (1.8-8.9); NEUTROPHILS % (AUTO) 83.3 % (38.5-71.5); PLATELET COUNT (AUTO) 368 K/uL (152-348); RED CELL DISTRIBUTION WIDTH 17.6 % (12.1-16.2); WHITE BLOOD COUNT (AUTO) 10.7 K/uL (3.6-10.2)
[2024-05-01 12:10] LABS: ABG BASE EXCESS -0.3 mmol/L (-2.0-2.0); ABG HCO3 19.8 mmol/L (22.0-26.0); ABG PCO2 21.8 mmHg (35.0-48.0); ABG PH 7.577 (7.340-7.440); ABG PO2 112.9 mmHg (75.0-100.0); ABG SITE RIGHT RADIAL; ABG TOTAL HEMOGLOBIN 12.8 G/dL (14.0-18.0); AaDO2 98.7 mmHg; COHb 0.5 % (0.0-3.9); MetHb 0.3 % (0.0-1.5); O2Hb 98.1 % (94.0-97.0)
[2024-05-01 12:14] LABS: DIFFERENTIAL COMMENT 1
[2024-05-01 12:21] LABS: CALCIUM 9.6 mg/dL (8.5-10.1); CARBON DIOXIDE 25 mmol/L (21-32); CHLORIDE 100 mmol/L (98-107); CREATININE 1.2 mg/dL (0.6-1.3); GLUCOSE 256 mg/dL (74-106); POTASSIUM 3.5 mmol/L (3.5-5.1); SODIUM SERUM 139 mmol/L (136-145); UREA NITROGEN, BLOOD 14 mg/dL (7-18)
[2024-05-01 12:23] LABS: ETHANOL < 3 MG/DL (0-10)
[2024-05-01 12:30] LABS: ALANINE AMINOTRANSFERASE 15 U/L (16-63); ALBUMIN 4.4 g/dL (3.4-5.0); ALKALINE PHOSPHATASE 112 U/L (50-136); ASPARTATE AMINOTRANSFERASE 16 U/L (15-37); BILIRUBIN,DIRECT 0.1 mg/dL (0.0-0.2); BILIRUBIN,TOTAL 0.9 mg/dL (0.2-1.0); TOTAL PROTEIN, SERUM 8.5 g/dL (6.4-8.2)
[2024-05-01 12:33] LABS: ACETAMINOPHEN < 2.0 ug/mL (10-30)
[2024-05-01] MEDS ORDERED: diphenhydrAMINE 50 MG/1 ML VIAL ONE (12:38)
[2024-05-01] MEDS ORDERED: PROCHLORPERAZINE EDISYLATE 10 MG/2 ML VIAL ONE (12:39)
[2024-05-01] MEDS: PROCHLORPERAZINE EDISYLATE 10 MG/2 ML VIAL IV ONE (12:41)
[2024-05-01] MEDS: diphenhydrAMINE 50 MG/1 ML VIAL IV ONE (12:41)
[2024-05-01] MEDS ORDERED: LORAZEPAM 2 MG/1 ML VIAL ONE (13:38)
[2024-05-01] MEDS: LORAZEPAM 2 MG/1 ML VIAL IV ONE (13:40)
[2024-05-01] MEDS: MORPHINE SULFATE 4 MG/1 ML DISP.SYRIN IV ONE (16:15)
[2024-05-01] MEDS ORDERED: ONDANSETRON 4 MG/2 ML VIAL ONE (16:17)
[2024-05-01] MEDS ORDERED: MORPHINE SULFATE 4 MG/1 ML DISP.SYRIN ONE (16:17)
[2024-05-01] MEDS: ONDANSETRON 4 MG/2 ML VIAL IV ONE (16:20)
[2024-05-01 18:05] VITALS: BP 108/65; TEMP 98.3; O2SAT 98
== END 2024-05-01 18:00 | disposition home or self-care (01) ==
LOC: ER 11:26
DX: R11.15 Cyclical vomiting syndrome unrelated to migraine (principal); E10.9 Type 1 diabetes mellitus without complications; K21.9 Gastro-esophageal reflux disease without esophagitis; Z90.49 Acquired absence of other specified parts of digestive tract; Z79.4 Long term (current) use of insulin; Z79.899 Other long term (current) drug therapy; Z88.1 Allergy status to other antibiotic agents
CPT/HCPCS: 80076; 80048; 82009; 82962; 83690; 85025; 84484; 36415; 93005; 99285; 96361; 96374; 96375; 80299; 80320; 36600 ×2; J1200; J2060; J0780; J7040; A4606; A4663; G0480; J2270; J2405

== ENCOUNTER 2024-07-15 11:02 | Emergency (ER) | payer MEDICAID, OTHER ==
[~2024-07-15] VITALS: Ht 180.3 cm; Wt 79.4 kg
[2024-07-15] MEDS ORDERED: LORAZEPAM 2 MG/1 ML VIAL ONE (11:15)
[2024-07-15] MEDS ORDERED: diphenhydrAMINE 50 MG/1 ML VIAL ONE ×2 (11:15→14:51)
[2024-07-15] MEDS ORDERED: PROCHLORPERAZINE EDISYLATE 10 MG/2 ML VIAL ONE (11:15)
[2024-07-15 11:40] LABS: ALBUMIN 4.3 g/dL (3.4-5.0); BILIRUBIN,DIRECT 0.1 mg/dL (0.0-0.2); BILIRUBIN,TOTAL 0.8 mg/dL (0.2-1.0); CALCIUM 9.5 mg/dL (8.5-10.1); CREATININE 1.1 mg/dL (0.6-1.3); POTASSIUM 3.2 mmol/L (3.5-5.1); TOTAL PROTEIN, SERUM 8.4 g/dL (6.4-8.2)
[2024-07-15 11:40] LABS: SITE, VBG VBG - N/A; VBG AaDO2 39.4 mmHg; VBG BASE EXCESS 1.9 mmol/L (-2.0-3.0); VBG HCO3 27.7 mmol/L (22.0-29.0); VBG MetHb 0.2 % (0.5-1.5); VBG O2HB 37.8 % (0-79.0); VBG PCO2 47.6 mmHg (38.0-54.0); VBG PH 7.382 (7.320-7.430); VBG PO2 < 40.5 mmHg (23.0-48.0); VBG TOTAL HEMOGLOBIN 13.6 G/dL (13.5-17.5)
[2024-07-15] MEDS: PROCHLORPERAZINE EDISYLATE 10 MG/2 ML VIAL IV ONE (11:41)
[2024-07-15] MEDS: LORAZEPAM 2 MG/1 ML VIAL IV ONE (11:41)
[2024-07-15] MEDS: diphenhydrAMINE 50 MG/1 ML VIAL IV ONE ×2 (11:41→14:55)
[2024-07-15] MEDS: IV NORMAL SALINE 1000 ML BAG IV ONE (11:41)
[2024-07-15 11:56] LABS: BASOPHILS # (AUTO) 0.1 K/UL (0.0-0.2); BASOPHILS % (AUTO) 0.8 % (0.0-2.0); DIFFERENTIAL COMMENT 0; EOSINOPHILS % (AUTO) 0.5 % (0.0-7.0); HEMATOCRIT 36.8 % (36.7-47.1); HEMOGLOBIN 11.9 g/dL (12.5-16.3); MEAN CORPUSCULAR HEMOGLOBIN 26.5 uug (23.8-33.4); MEAN CORPUSCULAR HGB CONC 32 g/dL (32.5-36.3); MEAN CORPUSCULAR VOLUME 81.8 fL (73.0-96.2); MONOCYTES # (AUTO) 0.6 K/uL (0.1-1.30); MONOCYTES % (AUTO) 5.6 % (0.0-11.0); NEUTROPHILS # (AUTO) 7.2 K/uL (1.8-8.9); NEUTROPHILS % (AUTO) 73.1 % (38.5-71.5); PLATELET COUNT (AUTO) 277 K/uL (152-348); RED CELL DISTRIBUTION WIDTH 18.9 % (12.1-16.2); WHITE BLOOD COUNT (AUTO) 9.9 K/uL (3.6-10.2)
[2024-07-15] MEDS ORDERED: POTASSIUM CHLORIDE 20 MEQ TAB.PRT.SR ONE (12:32)
[2024-07-15] MEDS: POTASSIUM CHLORIDE 20 MEQ TAB.PRT.SR PO ONE (12:39)
[2024-07-15] MEDS ORDERED: ONDANSETRON 4 MG/2 ML VIAL ONE (13:26)
[2024-07-15] MEDS: ONDANSETRON 4 MG/2 ML VIAL IV ONE (13:27)
[2024-07-15] MEDS: DICYCLOMINE HCL 20 MG/2 ML AMPUL IM STA (13:29)
[2024-07-15] MEDS: IV NORMAL SALINE 500 ML BAG IV ONE (14:03)
[2024-07-15 15:21] VITALS: BP 140/86; O2SAT 100
[2024-07-15] MEDS ORDERED: ONDA4TAB11 PO (16:12)
== END 2024-07-15 15:25 | disposition home or self-care (01) ==
LOC: ER 11:02
DX: R11.15 Cyclical vomiting syndrome unrelated to migraine (principal); E87.6 Hypokalemia; E11.65 Type 2 diabetes mellitus with hyperglycemia; K21.9 Gastro-esophageal reflux disease without esophagitis; K31.84 Gastroparesis; E11.43 Type 2 diabetes mellitus with diabetic autonomic (poly)neuropathy; F12.10 Cannabis abuse, uncomplicated; K58.0 Irritable bowel syndrome with diarrhea; Z90.49 Acquired absence of other specified parts of digestive tract; Z79.899 Other long term (current) drug therapy; Z88.8 Allergy status to other drugs, medicaments and biological substances
CPT/HCPCS: 99285; 96374; 96375; 96361; 80076; 80048; 83690; 85025; 36415; 82803; 96376; 96372; 36600 ×2; J0500; J1200 ×2; J2060; J2405; J0780; J7040 ×2; A4606; A4663

== ENCOUNTER 2024-07-29 16:13 | Emergency (ER) | payer MEDICAID ==
[~2024-07-29] VITALS: Ht 180.3 cm; Wt 77.1 kg
[~2024-07-29 16:13] MED LIST changes: +ONDA4TAB11 PO
[2024-07-29] MEDS: IV NORMAL SALINE 1000 ML BAG IV ONE ×2 (17:11→18:30)
[2024-07-29] MEDS ORDERED: diphenhydrAMINE 50 MG/1 ML VIAL ONE (17:12)
[2024-07-29] MEDS ORDERED: PROCHLORPERAZINE EDISYLATE 10 MG/2 ML VIAL ONE (17:13)
[2024-07-29] MEDS: LORAZEPAM 2 MG/1 ML VIAL IV ONE (17:13)
[2024-07-29] MEDS ORDERED: LORAZEPAM 2 MG/1 ML VIAL ONE (17:13)
[2024-07-29] MEDS: diphenhydrAMINE 50 MG/1 ML VIAL IV ONE (17:15)
[2024-07-29] MEDS: PROCHLORPERAZINE EDISYLATE 10 MG/2 ML VIAL IV ONE (17:17)
[2024-07-29 17:50] LABS: BASOPHILS # (AUTO) 0.2 K/UL (0.0-0.2); EOSINOPHILS % (AUTO) 0.2 % (0.0-7.0); HEMATOCRIT 36.6 % (36.7-47.1); HEMOGLOBIN 11.6 g/dL (12.5-16.3); LYMPHOCYTES % (AUTO) 5.3 % (20.5-51.5); MEAN CORPUSCULAR HEMOGLOBIN 25.8 uug (23.8-33.4); MEAN CORPUSCULAR HGB CONC 32 g/dL (32.5-36.3); MEAN CORPUSCULAR VOLUME 81.5 fL (73.0-96.2); MONOCYTES # (AUTO) 0.5 K/uL (0.1-1.30); MONOCYTES % (AUTO) 2.7 % (0.0-11.0); NEUTROPHILS # (AUTO) 17.5 K/uL (1.8-8.9); NEUTROPHILS % (AUTO) 90.8 % (38.5-71.5); PLATELET COUNT (AUTO) 573 K/uL (152-348); RED BLOOD CELL COUNT(AUTO) 4.49 MIL/uL (4.06-5.63); RED CELL DISTRIBUTION WIDTH 18.9 % (12.1-16.2); WHITE BLOOD COUNT (AUTO) 19.3 K/uL (3.6-10.2)
[2024-07-29 17:52] LABS: DIFFERENTIAL COMMENT 1
[2024-07-29 18:04] LABS: ALANINE AMINOTRANSFERASE 20 U/L (16-63); ALBUMIN 3.6 g/dL (3.4-5.0); ALKALINE PHOSPHATASE 168 U/L (50-136); ASPARTATE AMINOTRANSFERASE 20 U/L (15-37); BILIRUBIN,DIRECT 0.1 mg/dL (0.0-0.2); BILIRUBIN,TOTAL 0.5 mg/dL (0.2-1.0); CALCIUM 9.9 mg/dL (8.5-10.1); CARBON DIOXIDE 26 mmol/L (21-32); CHLORIDE 99 mmol/L (98-107); CREATININE 1.5 mg/dL (0.6-1.3); LIPASE 15 U/L (16-77); POTASSIUM 3.5 mmol/L (3.5-5.1); SODIUM SERUM 140 mmol/L (136-145); TOTAL PROTEIN, SERUM 9.4 g/dL (6.4-8.2); UREA NITROGEN, BLOOD 17 mg/dL (7-18)
[2024-07-29 18:14] LABS: GLUCOSE 45 mg/dL (74-106)
[2024-07-29] MEDS ORDERED: DEXTROSE 50% 50 ML DISP.SYRIN ONE (18:17)
[2024-07-29] MEDS: DEXTROSE 50% 50 ML DISP.SYRIN IV ONE (18:17)
[2024-07-29] MEDS ORDERED: ONDA4TAB11 PO (21:10)
[2024-07-29] MEDS ORDERED: CYCL10TA9 PO (21:10)
[2024-07-29 21:56] VITALS: BP 138/88; TEMP 98; O2SAT 97
== END 2024-07-29 21:56 | disposition home or self-care (01) ==
LOC: ER 16:15
DX: R11.2 Nausea with vomiting, unspecified (principal); K21.9 Gastro-esophageal reflux disease without esophagitis; E10.43 Type 1 diabetes mellitus with diabetic autonomic (poly)neuropathy; K31.84 Gastroparesis; E10.649 Type 1 diabetes mellitus with hypoglycemia without coma; E86.0 Dehydration; F12.90 Cannabis use, unspecified, uncomplicated; K58.9 Irritable bowel syndrome, unspecified; N28.9 Disorder of kidney and ureter, unspecified; Z90.49 Acquired absence of other specified parts of digestive tract
CPT/HCPCS: 99285; 74176; 96374; 96375; 96361 ×2; 80076; 80048; 82009; 82962 ×2; 83690; 85025; 84484; 36415; J3490; J1200; J2060; J0780; J7040 ×2; A4606; A4663

== ENCOUNTER 2024-09-05 09:38 | Emergency (ER) | payer MEDICAID ==
[~2024-09-05] VITALS: Ht 180.3 cm; Wt 77.1 kg
[~2024-09-05 09:38] MED LIST changes: +CYCL10TA9 PO
[2024-09-05] MEDS ORDERED: HYDROMORPHONE 1 MG/1 ML DISP.SYRIN ONE ×2 (09:55→11:34)
[2024-09-05] MEDS ORDERED: ONDANSETRON 4 MG/2 ML VIAL ONE (09:55)
[2024-09-05] MEDS: IV NS 1000 ML 1,000 ML IV ONE (10:00)
[2024-09-05] MEDS: ONDANSETRON 4 MG/2 ML VIAL IV ONE (10:05)
[2024-09-05] MEDS: HYDROMORPHONE 1 MG/1 ML DISP.SYRIN IV ONE ×2 (10:08→11:45)
[2024-09-05 10:33] LABS: ABG BASE EXCESS -3.1 mmol/L (-2.0-3.0); ABG HCO3 21.5 mmol/L (21.0-28.0); ABG PCO2 36.8 mmHg (35.0-48.0); ABG PH 7.385 (7.350-7.450); ABG PO2 95.3 mmHg (83.0-108.0); ABG SITE RIGHT RADIAL; ABG TOTAL HEMOGLOBIN 11.2 G/dL (13.5-17.5); AaDO2 97.2 mmHg; COHb 0.8 % (0.5-1.5); MetHb 0.1 % (0.0-1.5); O2Hb 96.2 % (94.0-98.0)
[2024-09-05 10:59] LABS: BASOPHILS # (AUTO) 0.1 K/UL (0.0-0.2); EOSINOPHILS # (AUTO) 0.1 K/uL (0.0-0.7); EOSINOPHILS % (AUTO) 0.8 % (0.0-7.0); HEMATOCRIT 35.7 % (36.7-47.1); HEMOGLOBIN 11.3 g/dL (12.5-16.3); LYMPHOCYTES # (AUTO) 1.5 K/uL (0.8-4.8); LYMPHOCYTES % (AUTO) 13.4 % (20.5-51.5); MEAN CORPUSCULAR HEMOGLOBIN 25.9 uug (23.8-33.4); MEAN CORPUSCULAR HGB CONC 32 g/dL (32.5-36.3); MEAN CORPUSCULAR VOLUME 81.8 fL (73.0-96.2); MONOCYTES # (AUTO) 0.7 K/uL (0.1-1.30); MONOCYTES % (AUTO) 6.7 % (0.0-11.0); NEUTROPHILS # (AUTO) 8.5 K/uL (1.8-8.9); NEUTROPHILS % (AUTO) 78.1 % (38.5-71.5); PLATELET COUNT (AUTO) 366 K/uL (152-348); RED BLOOD CELL COUNT(AUTO) 4.37 MIL/uL (4.06-5.63); RED CELL DISTRIBUTION WIDTH 16.9 % (12.1-16.2); WHITE BLOOD COUNT (AUTO) 10.8 K/uL (3.6-10.2)
[2024-09-05 11:05] LABS: DIFFERENTIAL COMMENT 1
[2024-09-05 11:08] LABS: CALCIUM 9.1 mg/dL (8.5-10.1); CARBON DIOXIDE 26 mmol/L (21-32); CHLORIDE 103 mmol/L (98-107); CREATININE 1.3 mg/dL (0.6-1.3); GLUCOSE 305 mg/dL (74-106); POTASSIUM 3.6 mmol/L (3.5-5.1); SODIUM SERUM 140 mmol/L (136-145); UREA NITROGEN, BLOOD 16 mg/dL (7-18)
[2024-09-05 11:11] LABS: ACETONE, SERUM NEGATIVE (NEGATIVE)
[2024-09-05 11:12] LABS: MAGNESIUM 1.8 mg/dL (1.8-2.4); PHOSPHOROUS 1.6 mg/dL (2.5-4.9)
[2024-09-05] MEDS ORDERED: MAGNESIUM SULFATE/D5W 200 ML ONE (11:33)
[2024-09-05] MEDS ORDERED: PROCHLORPERAZINE EDISYLATE 10 MG/2 ML VIAL ONE ×2 (11:33→17:32)
[2024-09-05] MEDS: MAGNESIUM SULFATE/D5W 100 ML IV SCH (11:34)
[2024-09-05] MEDS: PROCHLORPERAZINE EDISYLATE 10 MG/2 ML VIAL IV ONE ×2 (11:42→17:33)
[2024-09-05] MEDS: NEUTRA PHOS PACKET PO ONE (11:44)
[2024-09-05 17:18] LABS: IRON, SERUM 24 ug/dL (50-175)
[2024-09-05 17:41] VITALS: O2SAT 98
== END 2024-09-05 17:44 | disposition home or self-care (01) ==
LOC: ER 09:38
DX: R10.84 Generalized abdominal pain (principal); R11.2 Nausea with vomiting, unspecified; E10.43 Type 1 diabetes mellitus with diabetic autonomic (poly)neuropathy; K31.84 Gastroparesis; E10.65 Type 1 diabetes mellitus with hyperglycemia; F12.90 Cannabis use, unspecified, uncomplicated; K21.9 Gastro-esophageal reflux disease without esophagitis; Z79.4 Long term (current) use of insulin; Z90.49 Acquired absence of other specified parts of digestive tract
CPT/HCPCS: 99284; 96365; 96375; 96361; 96366; 80048; 82009; 82962; 83550; 83735; 84100; 85025; 36415; 82803; 96376; 36600 ×2; J3475; J2405; J0780 ×2; J1171 ×2; J7040; A4606; A4663

== ENCOUNTER 2024-09-13 16:29 | Emergency (ER) | payer MEDICAID ==
[~2024-09-13] VITALS: Ht 180.3 cm; Wt 77.1 kg
[2024-09-13] MEDS ORDERED: HYDROMORPHONE 1 MG/1 ML DISP.SYRIN ONE (16:53)
[2024-09-13] MEDS ORDERED: PROCHLORPERAZINE EDISYLATE 10 MG/2 ML VIAL ONE (16:53)
[2024-09-13] MEDS: diphenhydrAMINE 50 MG/1 ML VIAL IV ONE (16:54)
[2024-09-13] MEDS: IV NORMAL SALINE 1000 ML BAG IV ONE ×2 (16:54→17:38)
[2024-09-13] MEDS ORDERED: diphenhydrAMINE 50 MG/1 ML VIAL ONE (16:54)
[2024-09-13 16:56] LABS: BASOPHILS # (AUTO) 0.1 K/UL (0.0-0.2); BASOPHILS % (AUTO) 0.8 % (0.0-2.0); HEMATOCRIT 39.9 % (36.7-47.1); HEMOGLOBIN 12.9 g/dL (12.5-16.3); LYMPHOCYTES # (AUTO) 1.5 K/uL (0.8-4.8); LYMPHOCYTES % (AUTO) 12.2 % (20.5-51.5); MEAN CORPUSCULAR HEMOGLOBIN 26.1 uug (23.8-33.4); MEAN CORPUSCULAR HGB CONC 32 g/dL (32.5-36.3); MEAN CORPUSCULAR VOLUME 80.5 fL (73.0-96.2); MONOCYTES # (AUTO) 0.6 K/uL (0.1-1.30); MONOCYTES % (AUTO) 4.8 % (0.0-11.0); NEUTROPHILS # (AUTO) 10.1 K/uL (1.8-8.9); NEUTROPHILS % (AUTO) 82.2 % (38.5-71.5); PLATELET COUNT (AUTO) 420 K/uL (152-348); RED BLOOD CELL COUNT(AUTO) 4.95 MIL/uL (4.06-5.63); RED CELL DISTRIBUTION WIDTH 17.6 % (12.1-16.2); WHITE BLOOD COUNT (AUTO) 12.2 K/uL (3.6-10.2)
[2024-09-13 16:58] LABS: DIFFERENTIAL COMMENT 1
[2024-09-13] MEDS: PROCHLORPERAZINE EDISYLATE 10 MG/2 ML VIAL IV ONE (16:59)
[2024-09-13] MEDS ORDERED: PANTOPRAZOLE SODIUM 40 MG VIAL ONE (17:00)
[2024-09-13] MEDS: PANTOPRAZOLE SODIUM 40 MG VIAL IV ONE (17:02)
[2024-09-13] MEDS: HYDROMORPHONE 1 MG/1 ML DISP.SYRIN IV ONE (17:02)
[2024-09-13 17:12] LABS: ALBUMIN 4.7 g/dL (3.4-5.0); BILIRUBIN,DIRECT 0.1 mg/dL (0.0-0.2); BILIRUBIN,TOTAL 0.9 mg/dL (0.2-1.0); CREATININE 1.4 mg/dL (0.6-1.3); POTASSIUM 4.1 mmol/L (3.5-5.1); TOTAL PROTEIN, SERUM 9.6 g/dL (6.4-8.2)
[2024-09-13 17:17] LABS: CALCIUM 10.3 mg/dL (8.5-10.1); LACTIC ACID 2.9 mmol/L (0.4-2.0)
[2024-09-13 21:20] VITALS: BP 118/66; TEMP 97.7; O2SAT 96
== END 2024-09-13 20:35 | disposition home or self-care (01) ==
LOC: ER 16:29
DX: E11.43 Type 2 diabetes mellitus with diabetic autonomic (poly)neuropathy (principal); K31.84 Gastroparesis; F12.90 Cannabis use, unspecified, uncomplicated; K21.9 Gastro-esophageal reflux disease without esophagitis; K58.9 Irritable bowel syndrome, unspecified; Z90.49 Acquired absence of other specified parts of digestive tract; Z79.899 Other long term (current) drug therapy
CPT/HCPCS: 36415; 83605; 83690; 85025; A4606; A4663; J0780; J1171; J1200; J2470; J7040

== ENCOUNTER 2024-09-17 08:21 | Emergency (ER) | payer MEDICAID ==
[~2024-09-17] VITALS: Ht 180.3 cm; Wt 77.1 kg
[2024-09-17 09:09] LABS: BASOPHILS # (AUTO) 0.1 K/UL (0.0-0.2); BASOPHILS % (AUTO) 0.7 % (0.0-2.0); EOSINOPHILS # (AUTO) 0.1 K/uL (0.0-0.7); EOSINOPHILS % (AUTO) 0.9 % (0.0-7.0); HEMATOCRIT 35.6 % (36.7-47.1); HEMOGLOBIN 11.6 g/dL (12.5-16.3); LYMPHOCYTES % (AUTO) 24.1 % (20.5-51.5); MEAN CORPUSCULAR HGB CONC 33 g/dL (32.5-36.3); MEAN CORPUSCULAR VOLUME 79.9 fL (73.0-96.2); MONOCYTES # (AUTO) 0.7 K/uL (0.1-1.30); MONOCYTES % (AUTO) 8.2 % (0.0-11.0); NEUTROPHILS # (AUTO) 5.4 K/uL (1.8-8.9); NEUTROPHILS % (AUTO) 66.1 % (38.5-71.5); PLATELET COUNT (AUTO) 368 K/uL (152-348); RED BLOOD CELL COUNT(AUTO) 4.46 MIL/uL (4.06-5.63); RED CELL DISTRIBUTION WIDTH 17.7 % (12.1-16.2); WHITE BLOOD COUNT (AUTO) 8.1 K/uL (3.6-10.2)
[2024-09-17] MEDS: IV NORMAL SALINE 1000 ML BAG IV ONE (09:11)
[2024-09-17] MEDS ORDERED: MORPHINE SULFATE 2 MG/1 ML DISP.SYRIN ONE (09:13)
[2024-09-17] MEDS ORDERED: diphenhydrAMINE 50 MG/1 ML VIAL ONE (09:13)
[2024-09-17 09:14] LABS: DIFFERENTIAL COMMENT 1
[2024-09-17] MEDS ORDERED: MORPHINE SULFATE 4 MG/1 ML DISP.SYRIN IV ONE (09:15)
[2024-09-17 09:18] LABS: CALCIUM 9.2 mg/dL (8.5-10.1); CREATININE 1.2 mg/dL (0.6-1.3); POTASSIUM 3.4 mmol/L (3.5-5.1)
[2024-09-17] MEDS: diphenhydrAMINE 50 MG/1 ML VIAL IV ONE (09:20)
[2024-09-17] MEDS: MORPHINE SULFATE 10 MG/1 ML DISP.SYRIN IV ONE (09:21)
[2024-09-17 09:24] LABS: BILIRUBIN,DIRECT 0.1 mg/dL (0.0-0.2); BILIRUBIN,TOTAL 0.5 mg/dL (0.2-1.0); TOTAL PROTEIN, SERUM 8.2 g/dL (6.4-8.2)
[2024-09-17 09:31] LABS: LACTIC ACID 2.4 mmol/L (0.4-2.0)
[2024-09-17] MEDS ORDERED: METOCLOPRAMIDE HCL 10 MG/2 ML VIAL ONE (09:38)
[2024-09-17] MEDS: METOCLOPRAMIDE HCL 10 MG/2 ML VIAL IV ONE (09:52)
[2024-09-17] MEDS ORDERED: DEXTROSE 50% 50 ML DISP.SYRIN ONE (10:07)
[2024-09-17] MEDS: DEXTROSE 50% 50 ML DISP.SYRIN IV ONE (10:13)
[2024-09-17] MEDS: LOSARTAN POTASSIUM 50 MG TABLET PO ONE (11:27)
[2024-09-17 11:38] VITALS: BP 167/110; O2SAT 100
== END 2024-09-17 11:41 | disposition home or self-care (01) ==
LOC: ER 08:22
DX: R11.2 Nausea with vomiting, unspecified (principal); E11.43 Type 2 diabetes mellitus with diabetic autonomic (poly)neuropathy; K31.84 Gastroparesis; F12.90 Cannabis use, unspecified, uncomplicated; K21.9 Gastro-esophageal reflux disease without esophagitis; Z79.4 Long term (current) use of insulin; Z90.49 Acquired absence of other specified parts of digestive tract
CPT/HCPCS: 99284; 96374; 96375; 96361; 80076; 80048; 82962 ×2; 83690; 85025; 87040; 36415; 93005; 83605; J3490; J1200; J2765; J2270 ×2; J7040 ×2; A4606; A4663

== ENCOUNTER 2024-09-27 10:57 | Emergency (ER) | payer MEDICAID, OTHER ==
[~2024-09-27] VITALS: Ht 180.3 cm; Wt 77.1 kg
[2024-09-27] MEDS ORDERED: MORPHINE SULFATE 4 MG/1 ML DISP.SYRIN ONE (11:33)
[2024-09-27] MEDS ORDERED: MORPHINE SULFATE 2 MG/1 ML DISP.SYRIN ONE (11:34)
[2024-09-27] MEDS ORDERED: METOCLOPRAMIDE HCL 10 MG/2 ML VIAL ONE ×2 (11:35→11:45)
[2024-09-27] MEDS ORDERED: diphenhydrAMINE 50 MG/1 ML VIAL ONE (11:35)
[2024-09-27] MEDS: IV LACTATED RINGERS SOLUTION 1,000 ML BAG IV ONE (11:39)
[2024-09-27] MEDS: diphenhydrAMINE 50 MG/1 ML VIAL IV ONE (11:42)
[2024-09-27] MEDS: MORPHINE SULFATE 10 MG/1 ML DISP.SYRIN IV ONE (11:42)
[2024-09-27] MEDS: METOCLOPRAMIDE HCL 10 MG/2 ML VIAL IV ONE (11:42)
[2024-09-27 12:09] LABS: BASOPHILS # (AUTO) 0.1 K/UL (0.0-0.2); BASOPHILS % (AUTO) 0.5 % (0.0-2.0); EOSINOPHILS # (AUTO) 0.1 K/uL (0.0-0.7); EOSINOPHILS % (AUTO) 0.3 % (0.0-7.0); HEMATOCRIT 35.3 % (36.7-47.1); LYMPHOCYTES # (AUTO) 1.2 K/uL (0.8-4.8); LYMPHOCYTES % (AUTO) 7.8 % (20.5-51.5); MEAN CORPUSCULAR HEMOGLOBIN 25.5 uug (23.8-33.4); MEAN CORPUSCULAR HGB CONC 31 g/dL (32.5-36.3); MEAN CORPUSCULAR VOLUME 82.2 fL (73.0-96.2); MONOCYTES # (AUTO) 0.5 K/uL (0.1-1.30); MONOCYTES % (AUTO) 3.3 % (0.0-11.0); NEUTROPHILS # (AUTO) 13.6 K/uL (1.8-8.9); NEUTROPHILS % (AUTO) 88.1 % (38.5-71.5); PLATELET COUNT (AUTO) 328 K/uL (152-348); RED CELL DISTRIBUTION WIDTH 17.6 % (12.1-16.2); WHITE BLOOD COUNT (AUTO) 15.5 K/uL (3.6-10.2)
[2024-09-27 12:13] LABS: DIFFERENTIAL COMMENT 1
[2024-09-27] MEDS ORDERED: KETOROLAC TROMETHAMINE 15 MG INJ ONE (12:28)
[2024-09-27 12:30] LABS: CALCIUM 8.9 mg/dL (8.5-10.1); CREATININE 1.3 mg/dL (0.6-1.3); POTASSIUM 4.8 mmol/L (3.5-5.1)
[2024-09-27] MEDS: KETOROLAC TROMETHAMINE 15 MG INJ IVP ONE (12:30)
[2024-09-27] MEDS ORDERED: INSULIN REGULAR, HUMAN 1000 UNIT/10 ML VIAL ONE (13:01)
[2024-09-27] MEDS: INSULIN REGULAR, HUMAN 1000 UNIT/10 ML VIAL SQ ONE (13:06)
[2024-09-27] MEDS: INSULIN REGULAR, HUMAN 1000 UNIT/10 ML VIAL IV ONE (13:06)
[2024-09-27] MEDS ORDERED: PANTOPRAZOLE SODIUM 40 MG VIAL ONE (13:15)
[2024-09-27] MEDS ORDERED: MIDAZOLAM HCL 2 MG/2 ML VIAL ONE (13:16)
[2024-09-27] MEDS: PANTOPRAZOLE SODIUM IV 40 MG in IV DEXTROSE 5% 100 ML IV ONE (13:21)
[2024-09-27] MEDS: MIDAZOLAM HCL 2 MG/2 ML VIAL IV ONE (13:21)
[2024-09-27] MEDS ORDERED: METO-295 PO (17:35)
[2024-09-27] MEDS ORDERED: INSU200I SQ (17:35)
[2024-09-27] MEDS ORDERED: DIPH25CA83 PO (17:35)
[2024-09-27 18:03] VITALS: BP 128/78; TEMP 98.6; O2SAT 99
== END 2024-09-27 17:55 | disposition home or self-care (01) ==
LOC: ER 10:57
DX: E11.43 Type 2 diabetes mellitus with diabetic autonomic (poly)neuropathy (principal); K31.84 Gastroparesis; E11.65 Type 2 diabetes mellitus with hyperglycemia; F12.90 Cannabis use, unspecified, uncomplicated; K21.9 Gastro-esophageal reflux disease without esophagitis; Z90.49 Acquired absence of other specified parts of digestive tract
CPT/HCPCS: 99284; 96375; 96365; 96361; 80048; 82962 ×4; 83690; 85025; 36415; 96372; J1200; J1885; J2765 ×2; J2250; J2470 ×2; J2270 ×3; J1815; J7120; A4606; A4663

== ENCOUNTER 2024-10-02 06:35 | Emergency (ER) | payer OTHER ==
[~2024-10-02] VITALS: Ht 180.3 cm; Wt 77.1 kg
[~2024-10-02 06:35] MED LIST changes: +DIPH25CA83 PO; +INSU200I SQ; +METO-295 PO
[2024-10-02] MEDS ORDERED: HALOPERIDOL LACTATE 5 MG/1 ML VIAL ONE (07:28)
[2024-10-02] MEDS ORDERED: METOCLOPRAMIDE HCL 10 MG/2 ML VIAL ONE (07:28)
[2024-10-02] MEDS ORDERED: diphenhydrAMINE 50 MG/1 ML VIAL ONE (07:28)
[2024-10-02] MEDS: METOCLOPRAMIDE HCL 10 MG/2 ML VIAL IV ONE (07:43)
[2024-10-02] MEDS: IV NORMAL SALINE 1000 ML BAG IV ONE ×2 (07:43→09:49)
[2024-10-02] MEDS: diphenhydrAMINE 50 MG/1 ML VIAL IV ONE (07:43)
[2024-10-02] MEDS: HALOPERIDOL LACTATE 5 MG/1 ML VIAL IV ONE (07:43)
[2024-10-02 08:30] LABS: BASOPHILS # (AUTO) 0.1 K/UL (0.0-0.2); BASOPHILS % (AUTO) 0.8 % (0.0-2.0); EOSINOPHILS % (AUTO) 0.2 % (0.0-7.0); HEMATOCRIT 42.8 % (36.7-47.1); HEMOGLOBIN 13.8 g/dL (12.5-16.3); LYMPHOCYTES # (AUTO) 0.9 K/uL (0.8-4.8); LYMPHOCYTES % (AUTO) 9.4 % (20.5-51.5); MEAN CORPUSCULAR HEMOGLOBIN 26.4 uug (23.8-33.4); MEAN CORPUSCULAR HGB CONC 32 g/dL (32.5-36.3); MEAN CORPUSCULAR VOLUME 82.1 fL (73.0-96.2); MONOCYTES # (AUTO) 0.7 K/uL (0.1-1.30); MONOCYTES % (AUTO) 7.1 % (0.0-11.0); NEUTROPHILS # (AUTO) 8.3 K/uL (1.8-8.9); NEUTROPHILS % (AUTO) 82.5 % (38.5-71.5); PLATELET COUNT (AUTO) 251 K/uL (152-348); RED BLOOD CELL COUNT(AUTO) 5.21 MIL/uL (4.06-5.63); RED CELL DISTRIBUTION WIDTH 17.9 % (12.1-16.2); WHITE BLOOD COUNT (AUTO) 10.1 K/uL (3.6-10.2)
[2024-10-02 08:33] LABS: DIFFERENTIAL COMMENT 1
[2024-10-02 08:50] LABS: ALANINE AMINOTRANSFERASE 37 U/L (16-63); ALKALINE PHOSPHATASE 147 U/L (50-136); ASPARTATE AMINOTRANSFERASE 45 U/L (15-37); BILIRUBIN,DIRECT 0.1 mg/dL (0.0-0.2); BILIRUBIN,TOTAL 0.4 mg/dL (0.2-1.0); CALCIUM 9.1 mg/dL (8.5-10.1); CREATININE 1.5 mg/dL (0.6-1.3); LIPASE 27 U/L (16-77); TOTAL PROTEIN, SERUM 9.7 g/dL (6.4-8.2); UREA NITROGEN, BLOOD 13 mg/dL (7-18)
[2024-10-02 09:11] LABS: AMMONIA < 10 umol/L (11-32)
[2024-10-02 09:14] LABS: GLUCOSE 471 mg/dL (74-106)
[2024-10-02 10:11] LABS: *BILIRUBIN,URIN NEGATIVE (NEGATIVE); *BLOOD, URINE 1+ (NEGATIVE); *CLARITY,URINE CLEAR (CLEAR); *COLOR,URINE YELLOW (YELLOW); *KETONES,URINE 2+ (NEGATIVE); *PROTEIN,URINE 3+ (NEGATIVE); *UROBILINOGEN,URINE 0.2 E.U./dl (NORMAL); LEUKOCYTE ESTERASE ,URINE NEGATIVE (NEGATIVE); NITRITE, URINE NEGATIVE (NEGATIVE); UGLUCOSE 2+ (NEGATIVE)
[2024-10-02 10:32] LABS: CARBON DIOXIDE 21 mmol/L (21-32); CHLORIDE 94 mmol/L (98-107); POTASSIUM 5.1 mmol/L (3.5-5.1); SODIUM SERUM 135 mmol/L (136-145)
[2024-10-02] MEDS ORDERED: BUPRENORPHINE HCL 2 MG TAB.SUBL SL ONE (10:36)
[2024-10-02] MEDS: BUPRENORPHINE HCL 2 MG TAB.SUBL SL ONE (10:43)
[2024-10-02] MEDS ORDERED: INSULIN REGULAR, HUMAN 1000 UNIT/10 ML VIAL ONE (12:03)
[2024-10-02] MEDS: INSULIN REGULAR, HUMAN 1000 UNIT/10 ML VIAL IV ONE (12:06)
[2024-10-02 15:25] VITALS: BP 140/83; O2SAT 99
== END 2024-10-02 15:26 | disposition home or self-care (01) ==
LOC: ER 06:38
DX: R11.15 Cyclical vomiting syndrome unrelated to migraine (principal); E10.43 Type 1 diabetes mellitus with diabetic autonomic (poly)neuropathy; K31.84 Gastroparesis; F12.90 Cannabis use, unspecified, uncomplicated; K58.9 Irritable bowel syndrome, unspecified; Z90.49 Acquired absence of other specified parts of digestive tract; Z88.7 Allergy status to serum and vaccine
CPT/HCPCS: 99285; 96374; 96375; 96361; 71045; 80076; 80048; 81001; 82009; 82140; 82962 ×2; 83690; 85025; 85730; 84484; 36415; 93005; J1200; J1630; J2765; J1815; J7040 ×2; A4606; A4663

== ENCOUNTER 2024-11-29 08:46 | Emergency (ER) | payer OTHER ==
[~2024-11-29] VITALS: Ht 180.3 cm; Wt 77.1 kg
[2024-11-29] MEDS ORDERED: METOCLOPRAMIDE HCL 10 MG/2 ML VIAL ONE (09:00)
[2024-11-29] MEDS ORDERED: diphenhydrAMINE 50 MG/1 ML VIAL ONE ×2 (09:00→09:12)
[2024-11-29] MEDS ORDERED: MORPHINE SULFATE 4 MG/1 ML DISP.SYRIN ONE (09:00)
[2024-11-29 09:05] LABS: BASOPHILS % (AUTO) 0.4 % (0.0-2.0); HEMATOCRIT 34.9 % (36.7-47.1); HEMOGLOBIN 11.3 g/dL (12.5-16.3); LYMPHOCYTES # (AUTO) 1.4 K/uL (0.8-4.8); LYMPHOCYTES % (AUTO) 11.1 % (20.5-51.5); MEAN CORPUSCULAR HEMOGLOBIN 25.2 uug (23.8-33.4); MEAN CORPUSCULAR HGB CONC 32 g/dL (32.5-36.3); MEAN CORPUSCULAR VOLUME 77.8 fL (73.0-96.2); MONOCYTES # (AUTO) 0.5 K/uL (0.1-1.30); MONOCYTES % (AUTO) 4.2 % (0.0-11.0); NEUTROPHILS # (AUTO) 10.5 K/uL (1.8-8.9); NEUTROPHILS % (AUTO) 84.3 % (38.5-71.5); PLATELET COUNT (AUTO) 418 K/uL (152-348); RED BLOOD CELL COUNT(AUTO) 4.48 MIL/uL (4.06-5.63); RED CELL DISTRIBUTION WIDTH 17.3 % (12.1-16.2); WHITE BLOOD COUNT (AUTO) 12.4 K/uL (3.6-10.2)
[2024-11-29 09:08] LABS: DIFFERENTIAL COMMENT 1
[2024-11-29] MEDS: METOCLOPRAMIDE HCL 10 MG/2 ML VIAL IV ONE (09:08)
[2024-11-29] MEDS: diphenhydrAMINE 50 MG/1 ML VIAL IV ONE ×2 (09:08→09:16)
[2024-11-29] MEDS: IV NORMAL SALINE 1000 ML BAG IV ONE (09:08)
[2024-11-29] MEDS: MORPHINE SULFATE 4 MG/1 ML DISP.SYRIN IV ONE (09:08)
[2024-11-29] MEDS ORDERED: PROCHLORPERAZINE EDISYLATE 10 MG/2 ML VIAL ONE (09:12)
[2024-11-29] MEDS ORDERED: diphenhydrAMINE 50 MG/1 ML VIAL IV ONE (09:15)
[2024-11-29] MEDS: PROCHLORPERAZINE EDISYLATE 10 MG/2 ML VIAL IV ONE (09:16)
[2024-11-29 09:19] LABS: ALBUMIN 3.8 g/dL (3.4-5.0); BILIRUBIN,DIRECT 0.1 mg/dL (0.0-0.2); BILIRUBIN,TOTAL 0.8 mg/dL (0.2-1.0); CALCIUM 9.4 mg/dL (8.5-10.1); CREATININE 1.4 mg/dL (0.6-1.3); POTASSIUM 3.4 mmol/L (3.5-5.1); TOTAL PROTEIN, SERUM 7.8 g/dL (6.4-8.2)
[2024-11-29 09:33] LABS: LACTIC ACID 2.4 mmol/L (0.4-2.0)
[2024-11-29] MEDS ORDERED: IV NS + KCL 40 MEQ 1000 ML BAG IV ONE (09:45)
[2024-11-29] MEDS ORDERED: DIAZEPAM 10 MG/2 ML DISP.SYRIN ONE (10:03)
[2024-11-29] MEDS ORDERED: MORPHINE SULFATE 2 MG/1 ML DISP.SYRIN ONE (10:04)
[2024-11-29] MEDS: MORPHINE SULFATE 2 MG/1 ML DISP.SYRIN IV ONE (10:13)
[2024-11-29] MEDS: DIAZEPAM 10 MG/2 ML DISP.SYRIN IV ONE (10:13)
[2024-11-29 10:24] LABS: *BILIRUBIN,URIN NEGATIVE (NEGATIVE); *BLOOD, URINE 2+ (NEGATIVE); *CLARITY,URINE CLEAR (CLEAR); *COLOR,URINE YELLOW (YELLOW); *KETONES,URINE 3+ (NEGATIVE); *PROTEIN,URINE 3+ (NEGATIVE); *UROBILINOGEN,URINE 0.2 E.U./dl (NORMAL); LEUKOCYTE ESTERASE ,URINE NEGATIVE (NEGATIVE); NITRITE, URINE NEGATIVE (NEGATIVE); UGLUCOSE 3+ (NEGATIVE)
[2024-11-29 10:35] LABS: BACTERIA,URINE MANY /HPF (NONE SEEN); RBC,URINE 20-50 /HPF (0-3); URINE AMORPHOUS URATE MODERATE /HPF; WBC,URINE 80-100 /HPF (0-3)
[2024-11-29] MEDS: IV NS + KCL 40 MEQ 1000 ML BAG 1,000 ML IV ONE (10:38)
[2024-11-29 10:41] LABS: *AMPHETAMINE, URINE NEGATIVE (NEGATIVE); *BARBITURATE, URINE NEGATIVE (NEGATIVE); *BENZODIAZEPINE, URINE NEGATIVE (NEGATIVE); *CANNABINOID, URINE POSITIVE (NEGATIVE); *COCCAINE, URINE NEGATIVE (NEGATIVE); *OPIATE, URINE POSITIVE (NEGATIVE); *PHENCYCLIDINE SCREEN,URINE NEGATIVE (NEGATIVE); FENTANYL, URINE NEGATIVE (NEGATIVE)
[2024-11-29 11:42] LABS: CREATININE 1.1 mg/dL (0.6-1.3); POTASSIUM 3.6 mmol/L (3.5-5.1)
[2024-11-29] MEDS: CEFTRIAXONE 2 G in IV DEXTROSE 5% 100 ML IV ONE (11:47)
[2024-11-29] MEDS ORDERED: FAMO-132 PO (12:33)
[2024-11-29] MEDS ORDERED: METO-295 PO (12:33)
[2024-11-29 13:06] VITALS: BP 136/79; O2SAT 99
[2024-11-29] MEDS ORDERED: CEPH500C2 PO (14:59)
== END 2024-11-29 12:44 | disposition home or self-care (01) ==
LOC: ER 08:54
DX: R11.15 Cyclical vomiting syndrome unrelated to migraine (principal); N39.0 Urinary tract infection, site not specified; R06.00 Dyspnea, unspecified; R07.9 Chest pain, unspecified; F12.90 Cannabis use, unspecified, uncomplicated; Z90.49 Acquired absence of other specified parts of digestive tract; Z88.7 Allergy status to serum and vaccine
CPT/HCPCS: 99284; 96375; 96365; 96361; 71045; 80076; 80048 ×2; 81001; 82962; 83690; 85025; 87086; 36415; 96376; 83605 ×2; 80307; J0696; J3360; J1200 ×2; J2765; J0780; J2270 ×2; J7040 ×2; A4606; A4663

== ENCOUNTER 2024-12-20 17:20 | Inpatient (IN) | payer MEDICAID, OTHER ==
[~2024-12-20] VITALS: Ht 180.3 cm; Wt 74.2 kg
[~2024-12-20 17:20] MED LIST changes: +CEPH500C2 PO; +FAMO-132 PO
[2024-12-20] MEDS ORDERED: BUPRENORPHINE HCL 2 MG TAB.SUBL SL ONE (17:59)
[2024-12-20] MEDS ORDERED: METOCLOPRAMIDE HCL 10 MG/2 ML VIAL ONE (18:15)
[2024-12-20] MEDS ORDERED: diphenhydrAMINE 50 MG/1 ML VIAL ONE (18:15)
[2024-12-20] MEDS: diphenhydrAMINE 50 MG/1 ML VIAL IV ONE (18:18)
[2024-12-20] MEDS: METOCLOPRAMIDE HCL 10 MG/2 ML VIAL IV ONE (18:18)
[2024-12-20] MEDS: BUPRENORPHINE HCL 2 MG TAB.SUBL SL ONE ×2 (18:29→19:21)
[2024-12-20 18:32] LABS: BASOPHILS # (AUTO) 0.1 K/UL (0.0-0.2); BASOPHILS % (AUTO) 0.8 % (0.0-2.0); DIFFERENTIAL COMMENT 1; EOSINOPHILS % (AUTO) 0.5 % (0.0-7.0); HEMATOCRIT 36.8 % (36.7-47.1); HEMOGLOBIN 11.6 g/dL (12.5-16.3); LYMPHOCYTES # (AUTO) 1.8 K/uL (0.8-4.8); LYMPHOCYTES % (AUTO) 18.3 % (20.5-51.5); MEAN CORPUSCULAR HEMOGLOBIN 25.2 uug (23.8-33.4); MEAN CORPUSCULAR HGB CONC 32 g/dL (32.5-36.3); MEAN CORPUSCULAR VOLUME 79.9 fL (73.0-96.2); MONOCYTES # (AUTO) 0.6 K/uL (0.1-1.30); MONOCYTES % (AUTO) 6.4 % (0.0-11.0); NEUTROPHILS # (AUTO) 7.3 K/uL (1.8-8.9); PLATELET COUNT (AUTO) 339 K/uL (152-348); RED BLOOD CELL COUNT(AUTO) 4.61 MIL/uL (4.06-5.63); RED CELL DISTRIBUTION WIDTH 17.9 % (12.1-16.2); WHITE BLOOD COUNT (AUTO) 9.9 K/uL (3.6-10.2)
[2024-12-20 18:34] LABS: CALCIUM 9.8 mg/dL (8.5-10.1); CARBON DIOXIDE 25 mmol/L (21-32); CHLORIDE 103 mmol/L (98-107); CREATININE 1.1 mg/dL (0.6-1.3); GLUCOSE 195 mg/dL (74-106); POTASSIUM 3.4 mmol/L (3.5-5.1); SODIUM SERUM 143 mmol/L (136-145); UREA NITROGEN, BLOOD 17 mg/dL (7-18)
[2024-12-20 18:39] LABS: ALANINE AMINOTRANSFERASE 19 U/L (16-63); ALBUMIN 4.4 g/dL (3.4-5.0); ALKALINE PHOSPHATASE 126 U/L (50-136); ASPARTATE AMINOTRANSFERASE 26 U/L (15-37); BILIRUBIN,DIRECT 0.2 mg/dL (0.0-0.2); BILIRUBIN,TOTAL 0.7 mg/dL (0.2-1.0); LIPASE 29 U/L (16-77); TOTAL PROTEIN, SERUM 8.4 g/dL (6.4-8.2)
[2024-12-20] MEDS: ONDANSETRON 4 MG/2 ML VIAL IV ONE (19:36)
[2024-12-20] MEDS: IV NORMAL SALINE 500 ML IV ONE (19:37)
[2024-12-20] MEDS ORDERED: PROCHLORPERAZINE EDISYLATE 10 MG/2 ML VIAL ONE (21:53)
[2024-12-20] MEDS ORDERED: PROCHLORPERAZINE EDISYLATE 10 MG/2 ML VIAL IV ONE (22:00)
[2024-12-20] MEDS ORDERED: PROMETHAZINE HCL 25 MG SUPP.RECT RC ONE (22:11)
[2024-12-20] MEDS: PROMETHAZINE HCL 12.5 MG SUPP.RECT RC ONE (22:28)
[2024-12-20] MEDS: IV NS 1000 ML 1,000 ML IV ONE (22:28)
[2024-12-21] VITALS (9 sets, daily range): BP systolic 135–202; BP diastolic 72–114; TEMP 97.6–97.8; O2SAT 96–100
[2024-12-21] MEDS ORDERED: ACETAMINOPHEN 650 MG SUPP.RECT RC PRN
[2024-12-21] MEDS: HYDROMORPHONE 1 MG/1 ML DISP.SYRIN IV PRN (00:23)
[2024-12-21] MEDS: ONDANSETRON 4 MG/2 ML VIAL IV PRN (00:23)
[2024-12-21] MEDS: IV D5/ 0.9% NACL 1,000 ML IV PRN (02:52)
[2024-12-21] MEDS: LORAZEPAM 2 MG/1 ML VIAL IV PRN (02:52)
[2024-12-21 06:54] LABS: BASOPHILS % (AUTO) 0.2 % (0.0-2.0); HEMOGLOBIN 10.1 g/dL (12.5-16.3); LYMPHOCYTES # (AUTO) 1.2 K/uL (0.8-4.8); LYMPHOCYTES % (AUTO) 6.2 % (20.5-51.5); MEAN CORPUSCULAR HEMOGLOBIN 24.9 uug (23.8-33.4); MEAN CORPUSCULAR HGB CONC 31 g/dL (32.5-36.3); MEAN CORPUSCULAR VOLUME 81.4 fL (73.0-96.2); MONOCYTES # (AUTO) 0.6 K/uL (0.1-1.30); MONOCYTES % (AUTO) 3.2 % (0.0-11.0); NEUTROPHILS # (AUTO) 17.7 K/uL (1.8-8.9); NEUTROPHILS % (AUTO) 90.4 % (38.5-71.5); PLATELET COUNT (AUTO) 413 K/uL (152-348); RED BLOOD CELL COUNT(AUTO) 4.05 MIL/uL (4.06-5.63); RED CELL DISTRIBUTION WIDTH 18.1 % (12.1-16.2); WHITE BLOOD COUNT (AUTO) 19.6 K/uL (3.6-10.2)
[2024-12-21 07:03] LABS: DIFFERENTIAL COMMENT 1
[2024-12-21 07:11] LABS: ALBUMIN 4.2 g/dL (3.4-5.0); BILIRUBIN,TOTAL 0.7 mg/dL (0.2-1.0); CALCIUM 8.9 mg/dL (8.5-10.1); CREATININE 1.9 mg/dL (0.6-1.3); MAGNESIUM 1.9 mg/dL (1.8-2.4); POTASSIUM 4.6 mmol/L (3.5-5.1); TOTAL PROTEIN, SERUM 8.1 g/dL (6.4-8.2)
[2024-12-21 07:38] LABS: LACTIC ACID 3.6 mmol/L (0.4-2.0)
[2024-12-21] MEDS: diphenhydrAMINE 50 MG/1 ML VIAL IV PRN (08:48)
[2024-12-21] MEDS: PANTOPRAZOLE SODIUM 40 MG VIAL IV SCH (08:49)
[2024-12-21] MEDS: INSULIN REGULAR, HUMAN 1000 UNIT/10 ML VIAL SQ PRN (09:55)
[2024-12-21] MEDS: CEFTRIAXONE 1 G in IV DEXTROSE 5% 50 ML IV SCH (09:56)
[2024-12-21] MEDS ORDERED: INSU100V39 SQ (11:04)
[2024-12-21] MEDS ORDERED: METOCLOPRAMIDE HCL 10 MG/2 ML VIAL IV PRN ×2 (11:15)
[2024-12-21] MEDS: BLOOD SUGAR DIAGNOSTIC 1 EACH STRIP VI SCH (12:26)
[2024-12-21] MEDS: hydrALAZINE HCL 20 MG/1 ML VIAL IV PRN (16:02)
[2024-12-21] MEDS: DEXTROSE 50% 50 ML DISP.SYRIN IV PRN (17:22)
[2024-12-21] MEDS: INSULIN GLARGINE,HUM 300 UNITS/3 ML CARTRIDGE SQ SCH (20:30)
[2024-12-22 02:26] VITALS: O2SAT 88
[2024-12-22 08:06] VITALS: BP 170/104; TEMP 98.2; O2SAT 99
[2024-12-22 09:21] VITALS: BP 134/83; TEMP 98.6; O2SAT 100
[2024-12-22 11:05] VITALS: BP 138/96; TEMP 98.2; O2SAT 100
[2024-12-22 14:46] LABS: BASOPHILS % (AUTO) 0.3 % (0.0-2.0); EOSINOPHILS % (AUTO) 0.2 % (0.0-7.0); HEMATOCRIT 30.8 % (36.7-47.1); HEMOGLOBIN 9.9 g/dL (12.5-16.3); LYMPHOCYTES # (AUTO) 1.4 K/uL (0.8-4.8); LYMPHOCYTES % (AUTO) 9.1 % (20.5-51.5); MEAN CORPUSCULAR HEMOGLOBIN 25.2 uug (23.8-33.4); MEAN CORPUSCULAR HGB CONC 32 g/dL (32.5-36.3); MEAN CORPUSCULAR VOLUME 78.8 fL (73.0-96.2); MONOCYTES # (AUTO) 0.9 K/uL (0.1-1.30); NEUTROPHILS # (AUTO) 12.6 K/uL (1.8-8.9); NEUTROPHILS % (AUTO) 84.4 % (38.5-71.5); PLATELET COUNT (AUTO) 348 K/uL (152-348); RED BLOOD CELL COUNT(AUTO) 3.91 MIL/uL (4.06-5.63); RED CELL DISTRIBUTION WIDTH 17.7 % (12.1-16.2); WHITE BLOOD COUNT (AUTO) 14.9 K/uL (3.6-10.2)
[2024-12-22 14:53] LABS: DIFFERENTIAL COMMENT 1
[2024-12-22 15:06] LABS: CALCIUM 8.3 mg/dL (8.5-10.1); CREATININE 0.9 mg/dL (0.6-1.3); POTASSIUM 3.5 mmol/L (3.5-5.1)
[2024-12-22] MEDS: HYDROMORPHONE 1 MG/1 ML DISP.SYRIN IM PRN (20:04)
[2024-12-22] MEDS: ONDANSETRON 4 MG/2 ML VIAL IM PRN (20:05)
[2024-12-22] MEDS: INSULIN REGULAR, HUMAN 300 UNITS/3 ML VIAL SQ PRN (20:18)
[2024-12-22] MEDS: INSULIN GLARGINE,HUM 300 UNITS/3 ML CARTRIDGE SQ SCH (20:23)
[2024-12-22 21:10] VITALS: BP 168/104; TEMP 98; O2SAT 100
[2024-12-22] MEDS: LORAZEPAM 2 MG/1 ML VIAL IM PRN (21:34)
[2024-12-22 22:23] VITALS: BP 154/88; O2SAT 99
[2024-12-23 06:15] VITALS: BP 135/88; TEMP 97.9; O2SAT 98
[2024-12-23 06:59] LABS: BASOPHILS # (AUTO) 0.1 K/UL (0.0-0.2); BASOPHILS % (AUTO) 0.4 % (0.0-2.0); EOSINOPHILS % (AUTO) 0.2 % (0.0-7.0); LYMPHOCYTES # (AUTO) 2.5 K/uL (0.8-4.8); LYMPHOCYTES % (AUTO) 16.6 % (20.5-51.5); MEAN CORPUSCULAR HEMOGLOBIN 25.8 uug (23.8-33.4); MEAN CORPUSCULAR HGB CONC 33 g/dL (32.5-36.3); MEAN CORPUSCULAR VOLUME 77.6 fL (73.0-96.2); MONOCYTES # (AUTO) 1.4 K/uL (0.1-1.30); MONOCYTES % (AUTO) 9.5 % (0.0-11.0); NEUTROPHILS % (AUTO) 73.3 % (38.5-71.5); PLATELET COUNT (AUTO) 427 K/uL (152-348); RED BLOOD CELL COUNT(AUTO) 4.25 MIL/uL (4.06-5.63); RED CELL DISTRIBUTION WIDTH 17.7 % (12.1-16.2)
[2024-12-23 07:10] LABS: DIFFERENTIAL COMMENT 1
[2024-12-23 07:20] LABS: CALCIUM 8.6 mg/dL (8.5-10.1); CREATININE 0.8 mg/dL (0.6-1.3); POTASSIUM 2.9 mmol/L (3.5-5.1)
[2024-12-23] MEDS: HYDROMORPHONE 1 MG/1 ML DISP.SYRIN IVP PRN (07:33)
[2024-12-23] MEDS: ONDANSETRON 4 MG/2 ML VIAL IV PRN (07:35)
[2024-12-23] MEDS: POTASSIUM CHLORIDE 20 MEQ POWDER PACKET PO ONE (12:52)
[2024-12-23] MEDS: POTASSIUM CHLORIDE 50 ML IV SCH (12:54)
[2024-12-23] MEDS ORDERED: ERYTHROMYCIN BASE 250 MG TABLET.DR PO SCH ×2 (14:00)
[2024-12-23 15:14] VITALS: BP 155/102; TEMP 98.4; O2SAT 98
[2024-12-23] MEDS: ERYTHROMYCIN ETHYLSUCC 200 MG/5 ML SUSPENSION 100ML PO SCH (15:43)
[2024-12-23 15:56] VITALS: BP 177/115; TEMP 98.4; O2SAT 98
[2024-12-23] MEDS ORDERED: LORAZEPAM 2 MG/1 ML VIAL IV PRN (16:30)
[2024-12-23] MEDS: LORAZEPAM 2 MG/1 ML VIAL IM PRN (17:56)
[2024-12-23 20:07] VITALS: BP 157/113; TEMP 97.7; O2SAT 99
[2024-12-23 21:54] VITALS: BP 136/84; O2SAT 99
[2024-12-24 06:04] VITALS: BP 110/56; TEMP 98.2; O2SAT 98
[2024-12-24] MEDS: PANTOPRAZOLE SODIUM 40 MG TABLET.DR PO SCH (06:12)
[2024-12-24 07:01] LABS: BASOPHILS # (AUTO) 0.1 K/UL (0.0-0.2); BASOPHILS % (AUTO) 0.7 % (0.0-2.0); EOSINOPHILS % (AUTO) 0.5 % (0.0-7.0); HEMATOCRIT 33.7 % (36.7-47.1); HEMOGLOBIN 10.8 g/dL (12.5-16.3); LYMPHOCYTES # (AUTO) 1.7 K/uL (0.8-4.8); LYMPHOCYTES % (AUTO) 21.4 % (20.5-51.5); MEAN CORPUSCULAR HEMOGLOBIN 25.3 uug (23.8-33.4); MEAN CORPUSCULAR HGB CONC 32 g/dL (32.5-36.3); MEAN CORPUSCULAR VOLUME 78.7 fL (73.0-96.2); MONOCYTES # (AUTO) 0.9 K/uL (0.1-1.30); MONOCYTES % (AUTO) 11.5 % (0.0-11.0); NEUTROPHILS # (AUTO) 5.2 K/uL (1.8-8.9); NEUTROPHILS % (AUTO) 65.9 % (38.5-71.5); PLATELET COUNT (AUTO) 327 K/uL (152-348); RED BLOOD CELL COUNT(AUTO) 4.28 MIL/uL (4.06-5.63); RED CELL DISTRIBUTION WIDTH 17.9 % (12.1-16.2); WHITE BLOOD COUNT (AUTO) 7.8 K/uL (3.6-10.2)
[2024-12-24 07:20] LABS: DIFFERENTIAL COMMENT 1
[2024-12-24 07:33] LABS: CALCIUM 8.5 mg/dL (8.5-10.1); CREATININE 1.1 mg/dL (0.6-1.3); MAGNESIUM 1.6 mg/dL (1.8-2.4); PHOSPHOROUS 2.9 mg/dL (2.5-4.9); POTASSIUM 3.5 mmol/L (3.5-5.1)
[2024-12-24 11:30] VITALS: BP 170/110; TEMP 98.4; O2SAT 100
[2024-12-24 12:40] VITALS: BP 127/82
[2024-12-24] MEDS: LISINOPRIL 20 MG TABLET PO SCH (13:00)
[2024-12-24] MEDS: METOCLOPRAMIDE HCL 10 MG/2 ML VIAL IV PRN (13:05)
[2024-12-24] MEDS: MAGNESIUM OXIDE 400 MG TABLET PO ONE (17:30)
[2024-12-24 19:25] VITALS: BP 114/69; TEMP 98.9; O2SAT 99
[2024-12-24 19:40] VITALS: BP 114/69; TEMP 98.9; O2SAT 99
[2024-12-24] MEDS: INSULIN REGULAR, HUMAN 1000 UNIT/10 ML VIAL SQ ONE (21:13)
[2024-12-24] MEDS: INSULIN GLARGINE,HUM 300 UNITS/3 ML CARTRIDGE SQ SCH (21:15)
[2024-12-25] MEDS: diphenhydrAMINE 50 MG/1 ML VIAL IV PRN (03:40)
[2024-12-25 06:01] VITALS: BP 128/80; TEMP 97.8; O2SAT 100
[2024-12-25 06:10] VITALS: BP 128/80; TEMP 97.8; O2SAT 100
[2024-12-25 06:47] LABS: BASOPHILS # (AUTO) 0.1 K/UL (0.0-0.2); BASOPHILS % (AUTO) 0.7 % (0.0-2.0); EOSINOPHILS # (AUTO) 0.2 K/uL (0.0-0.7); EOSINOPHILS % (AUTO) 1.5 % (0.0-7.0); HEMATOCRIT 30.1 % (36.7-47.1); HEMOGLOBIN 9.8 g/dL (12.5-16.3); LYMPHOCYTES # (AUTO) 4.1 K/uL (0.8-4.8); LYMPHOCYTES % (AUTO) 41.3 % (20.5-51.5); MEAN CORPUSCULAR HEMOGLOBIN 25.7 uug (23.8-33.4); MEAN CORPUSCULAR HGB CONC 33 g/dL (32.5-36.3); MEAN CORPUSCULAR VOLUME 78.7 fL (73.0-96.2); MONOCYTES # (AUTO) 1.1 K/uL (0.1-1.30); MONOCYTES % (AUTO) 11.5 % (0.0-11.0); NEUTROPHILS # (AUTO) 4.4 K/uL (1.8-8.9); PLATELET COUNT (AUTO) 319 K/uL (152-348); RED BLOOD CELL COUNT(AUTO) 3.82 MIL/uL (4.06-5.63); RED CELL DISTRIBUTION WIDTH 17.3 % (12.1-16.2); WHITE BLOOD COUNT (AUTO) 9.8 K/uL (3.6-10.2)
[2024-12-25 07:01] LABS: CALCIUM 8.2 mg/dL (8.5-10.1); CREATININE 1.1 mg/dL (0.6-1.3); MAGNESIUM 1.9 mg/dL (1.8-2.4); PHOSPHOROUS 3.9 mg/dL (2.5-4.9); POTASSIUM 3.4 mmol/L (3.5-5.1)
[2024-12-25 07:12] LABS: DIFFERENTIAL COMMENT 1
[2024-12-25 08:27] VITALS: BP 128/80
[2024-12-25] MEDS ORDERED: [UNRECOGNIZED DRUG - CODE] SQ (12:11)
[2024-12-25] MEDS ORDERED: ERYTHROMYCIN ETHYLSUCC 200 MG/5 ML SUSPENSION 100ML PO SCH (12:26)
[2024-12-25] MEDS ORDERED: POTASSIUM CHLORIDE 20 MEQ POWDER PACKET PO ONE (13:00)
[2024-12-26] MEDS ORDERED: INSU100V SQ (13:33)
== END 2024-12-25 13:10 | disposition home or self-care (01) | DRG 48 ==
LOC: ER 17:20 → MEDSURG3 23:41 → TELE3 23:47 → MEDSURG3 12-22 11:21
PROVIDERS: ADMIT Internal Medicine; ATTEND Nurse Practitioner Family
PROC: 05H933Z Insertion of Infusion Device into Right Brachial Vein, Percutaneous Approach (ICD-10-PCS; principal; 2024-12-23)
DX: E10.43 Type 1 diabetes mellitus with diabetic autonomic (poly)neuropathy (principal); E10.649 Type 1 diabetes mellitus with hypoglycemia without coma; N17.9 Acute kidney failure, unspecified; E83.39 Other disorders of phosphorus metabolism; E87.1 Hypo-osmolality and hyponatremia; D63.8 Anemia in other chronic diseases classified elsewhere; E87.20 Acidosis, unspecified; E10.65 Type 1 diabetes mellitus with hyperglycemia; D53.9 Nutritional anemia, unspecified; K31.84 Gastroparesis; F12.11 Cannabis abuse, in remission; Z91.148 Patient's other noncompliance with medication regimen for other reason; F11.20 Opioid dependence, uncomplicated; Z87.19 Personal history of other diseases of the digestive system; D72.829 Elevated white blood cell count, unspecified; F41.9 Anxiety disorder, unspecified; K58.9 Irritable bowel syndrome, unspecified; Z79.4 Long term (current) use of insulin
CPT/HCPCS: 36415; 71045; 83550; 83605; 83690; 83735; 84100; 84484; 85025; 87040; A4663; G0378; J0360; J0696; J0780; J1171; J1200; J1815; J2060; J2405; J2470; J2765; J3480; J3490; J7040; J7042; J8499

== ENCOUNTER 2024-12-26 12:10 | Inpatient (IN) | payer MEDICAID ==
[~2024-12-26] VITALS: Ht 180.3 cm; Wt 74.8 kg
[~2024-12-26 12:10] MED LIST changes: -CEPH500C2 PO; -CYCL10TA9 PO; -DIPH25CA83 PO; -FLAS1EAC2 TP; -FLAS1KIT2 TP; -INSU100C13 SQ; +INSU100V39 SQ; -INSU200I SQ; -LORA0.5T48 PO; -METO-295 PO; -ONDA-104 PO; -ONDA4TAB11 PO; -ONDA4TAB5 PO; -TRAM50TA2 PO; +[UNRECOGNIZED DRUG - CODE] SQ
[2024-12-26] MEDS ORDERED: HYDROMORPHONE 2 MG/1 ML DISP.SYRIN ONE ×2 (12:33→13:03)
[2024-12-26] MEDS ORDERED: diphenhydrAMINE 50 MG/1 ML VIAL ONE ×2 (12:33→13:03)
[2024-12-26] MEDS ORDERED: METOCLOPRAMIDE HCL 10 MG/2 ML VIAL ONE (12:33)
[2024-12-26] MEDS: IV NORMAL SALINE 1000 ML BAG IV ONE (12:34)
[2024-12-26] MEDS: HYDROMORPHONE 1 MG/1 ML DISP.SYRIN IV ONE ×2 (12:35→13:06)
[2024-12-26] MEDS: METOCLOPRAMIDE HCL 10 MG/2 ML VIAL IV ONE (12:35)
[2024-12-26] MEDS ORDERED: INSULIN REGULAR, HUMAN 1000 UNIT/10 ML VIAL ONE (12:36)
[2024-12-26] MEDS: INSULIN REGULAR, HUMAN 1000 UNIT/10 ML VIAL IV ONE (12:39)
[2024-12-26] MEDS: diphenhydrAMINE 50 MG/1 ML VIAL IV ONE ×2 (12:42→13:06)
[2024-12-26 12:50] LABS: BASOPHILS # (AUTO) 0.1 K/UL (0.0-0.2); BASOPHILS % (AUTO) 0.9 % (0.0-2.0); EOSINOPHILS # (AUTO) 0.1 K/uL (0.0-0.7); EOSINOPHILS % (AUTO) 1.6 % (0.0-7.0); HEMATOCRIT 31.8 % (36.7-47.1); HEMOGLOBIN 10.4 g/dL (12.5-16.3); LYMPHOCYTES # (AUTO) 1.7 K/uL (0.8-4.8); LYMPHOCYTES % (AUTO) 20.3 % (20.5-51.5); MEAN CORPUSCULAR HEMOGLOBIN 25.9 uug (23.8-33.4); MEAN CORPUSCULAR HGB CONC 33 g/dL (32.5-36.3); MEAN CORPUSCULAR VOLUME 79.3 fL (73.0-96.2); MONOCYTES # (AUTO) 0.3 K/uL (0.1-1.30); MONOCYTES % (AUTO) 4.2 % (0.0-11.0); PLATELET COUNT (AUTO) 333 K/uL (152-348); RED BLOOD CELL COUNT(AUTO) 4.01 MIL/uL (4.06-5.63); RED CELL DISTRIBUTION WIDTH 17.9 % (12.1-16.2); WHITE BLOOD COUNT (AUTO) 8.2 K/uL (3.6-10.2)
[2024-12-26 12:57] LABS: DIFFERENTIAL COMMENT 1
[2024-12-26 12:59] LABS: CALCIUM 9.2 mg/dL (8.5-10.1); CREATININE 1.3 mg/dL (0.6-1.3); POTASSIUM 3.7 mmol/L (3.5-5.1)
[2024-12-26 13:05] LABS: ALBUMIN 3.8 g/dL (3.4-5.0); BILIRUBIN,DIRECT 0.1 mg/dL (0.0-0.2); BILIRUBIN,TOTAL 0.3 mg/dL (0.2-1.0); TOTAL PROTEIN, SERUM 7.3 g/dL (6.4-8.2)
[2024-12-26 13:09] LABS: LACTIC ACID 2.4 mmol/L (0.4-2.0)
[2024-12-26 13:22] LABS: *BILIRUBIN,URIN NEGATIVE (NEGATIVE); *BLOOD, URINE 1+ (NEGATIVE); *CLARITY,URINE CLEAR (CLEAR); *COLOR,URINE YELLOW (YELLOW); *KETONES,URINE NEGATIVE (NEGATIVE); *PROTEIN,URINE 3+ (NEGATIVE); *UROBILINOGEN,URINE 0.2 E.U./dl (NORMAL); LEUKOCYTE ESTERASE ,URINE NEGATIVE (NEGATIVE); NITRITE, URINE NEGATIVE (NEGATIVE); PH,URINE 7.5 (5.0-8.0); UGLUCOSE 1+ (NEGATIVE)
[2024-12-26 13:23] LABS: BACTERIA,URINE FEW /HPF (NONE SEEN); WBC,URINE 0-3 /HPF (0-3)
[2024-12-26 13:27] LABS: ABG BASE EXCESS 3.7 mmol/L (-2.0-3.0); ABG HCO3 28.3 mmol/L (21.0-28.0); ABG PCO2 42.8 mmHg (35.0-48.0); ABG PH 7.438 (7.350-7.450); ABG PO2 77.9 mmHg (83.0-108.0); ABG SITE RIGHT RADIAL; ABG TOTAL HEMOGLOBIN 10.3 G/dL (13.5-17.5); AaDO2 95.9 mmHg; COHb 0.9 % (0.5-1.5); MetHb 0.3 % (0.0-1.5); O2Hb 93.2 % (94.0-98.0)
[2024-12-26] MEDS ORDERED: INSU100V SQ (13:33)
[2024-12-26] MEDS: HYDROMORPHONE 1 MG/1 ML DISP.SYRIN IV PRN ×2 (14:45→19:04)
[2024-12-26 15:30] VITALS: BP 142/78; TEMP 97.6; O2SAT 97
[2024-12-26] MEDS ORDERED: ONDANSETRON 4 MG/2 ML VIAL IV PRN (16:15)
[2024-12-26] MEDS ORDERED: DEXTROSE 50% 50 ML DISP.SYRIN IV PRN (16:15)
[2024-12-26] MEDS ORDERED: ACETAMINOPHEN 325 MG TABLET PO PRN (16:15)
[2024-12-26] MEDS ORDERED: MAGNESIUM HYDROXIDE 30 ML LIQUID UDC PO PRN (16:15)
[2024-12-26] MEDS: DEXTROSE 50% 50 ML DISP.SYRIN IV ONE (16:18)
[2024-12-26] MEDS: BLOOD SUGAR DIAGNOSTIC 1 EACH STRIP VI SCH (16:49)
[2024-12-26] MEDS: ERYTHROMYCIN ETHYLSUCC 200 MG/5 ML SUSPENSION 100ML PO SCH (16:50)
[2024-12-26] MEDS: IV D5 1/2 NS 1000 ML 1,000 ML IV PRN (16:53)
[2024-12-26] MEDS: GLUCOSE ORAL GEL 15 GM TUBE PO ONE (17:45)
[2024-12-26] MEDS ORDERED: GLUCOSE ORAL GEL 15 GM TUBE PO PRN (17:45)
[2024-12-26] MEDS: METOCLOPRAMIDE HCL 10 MG/2 ML VIAL IV PRN (18:35)
[2024-12-26] MEDS: diphenhydrAMINE 50 MG/1 ML VIAL IV PRN (18:35)
[2024-12-26 19:00] VITALS: BP 157/100; TEMP 98.2; O2SAT 99
[2024-12-26] MEDS: HYDROMORPHONE 1 MG/1 ML DISP.SYRIN IM ONE (23:57)
[2024-12-26] MEDS: diphenhydrAMINE 50 MG/1 ML VIAL IM ONE (23:58)
[2024-12-27] MEDS: METOCLOPRAMIDE HCL 10 MG/2 ML VIAL IM ONE (00:03)
[2024-12-27 05:58] VITALS: BP 182/113; TEMP 97.9; O2SAT 100
[2024-12-27 06:26] LABS: BASOPHILS # (AUTO) 0.1 K/UL (0.0-0.2); BASOPHILS % (AUTO) 0.9 % (0.0-2.0); EOSINOPHILS # (AUTO) 0.2 K/uL (0.0-0.7); EOSINOPHILS % (AUTO) 1.9 % (0.0-7.0); HEMATOCRIT 30.6 % (36.7-47.1); HEMOGLOBIN 10.1 g/dL (12.5-16.3); LYMPHOCYTES # (AUTO) 2.2 K/uL (0.8-4.8); LYMPHOCYTES % (AUTO) 25.3 % (20.5-51.5); MEAN CORPUSCULAR HGB CONC 33 g/dL (32.5-36.3); MEAN CORPUSCULAR VOLUME 78.9 fL (73.0-96.2); MONOCYTES # (AUTO) 0.8 K/uL (0.1-1.30); MONOCYTES % (AUTO) 9.5 % (0.0-11.0); NEUTROPHILS # (AUTO) 5.4 K/uL (1.8-8.9); NEUTROPHILS % (AUTO) 62.4 % (38.5-71.5); PLATELET COUNT (AUTO) 320 K/uL (152-348); RED BLOOD CELL COUNT(AUTO) 3.88 MIL/uL (4.06-5.63); RED CELL DISTRIBUTION WIDTH 18.1 % (12.1-16.2); WHITE BLOOD COUNT (AUTO) 8.6 K/uL (3.6-10.2)
[2024-12-27 06:42] LABS: CALCIUM 8.8 mg/dL (8.5-10.1); CREATININE 1.2 mg/dL (0.6-1.3); MAGNESIUM 2.1 mg/dL (1.8-2.4); PHOSPHOROUS 2.6 mg/dL (2.5-4.9)
[2024-12-27 06:57] LABS: POTASSIUM 4.1 mmol/L (3.5-5.1)
[2024-12-27 06:59] LABS: DIFFERENTIAL COMMENT 1
[2024-12-27] MEDS: INSULIN REGULAR, HUMAN 1000 UNIT/10 ML VIAL SQ PRN (08:04)
[2024-12-27] MEDS: PANTOPRAZOLE SODIUM 40 MG VIAL IV SCH (08:19)
== END 2024-12-27 11:30 | disposition home or self-care (01) | DRG 48 ==
LOC: ER 12:10 → MEDSURG3 14:40
PROVIDERS: ADMIT Nurse Practitioner Family; ATTEND Nurse Practitioner Family
DX: E10.43 Type 1 diabetes mellitus with diabetic autonomic (poly)neuropathy (principal); E87.20 Acidosis, unspecified; D50.9 Iron deficiency anemia, unspecified; E10.65 Type 1 diabetes mellitus with hyperglycemia; F41.9 Anxiety disorder, unspecified; F12.11 Cannabis abuse, in remission; K31.84 Gastroparesis; R11.15 Cyclical vomiting syndrome unrelated to migraine; E08.9 Diabetes mellitus due to underlying condition without complications; K58.9 Irritable bowel syndrome, unspecified; R79.89 Other specified abnormal findings of blood chemistry; Z79.4 Long term (current) use of insulin; Z90.49 Acquired absence of other specified parts of digestive tract; Z79.899 Other long term (current) drug therapy; Z88.8 Allergy status to other drugs, medicaments and biological substances
CPT/HCPCS: 36415; 36600; 82803; 83605; 83690; 83735; 84100; 85025; A4663; G0378; J1171; J1200; J1815; J2470; J2765; J3490; J7040; J7042

== ENCOUNTER 2025-02-12 09:44 | Emergency (ER) | payer MEDICAID ==
[~2025-02-12] VITALS: Ht 180.3 cm; Wt 77.1 kg
[~2025-02-12 09:44] MED LIST changes: -FAMO-132 PO; +INSU100V SQ; -INSU100V39 SQ; -[UNRECOGNIZED DRUG - CODE] SQ
[2025-02-12] MEDS ORDERED: METOCLOPRAMIDE HCL 10 MG/2 ML VIAL ONE (11:40)
[2025-02-12] MEDS ORDERED: BUPRENORPHINE HCL 2 MG TAB.SUBL SL ONE (11:40)
[2025-02-12] MEDS ORDERED: diphenhydrAMINE 50 MG/1 ML VIAL ONE (11:40)
[2025-02-12 11:55] LABS: BASOPHILS % (AUTO) 0.1 % (0.0-2.0); EOSINOPHILS # (AUTO) 0.1 K/uL (0.0-0.7); EOSINOPHILS % (AUTO) 1.2 % (0.0-7.0); HEMOGLOBIN 10.6 g/dL (12.5-16.3); LYMPHOCYTES # (AUTO) 2.7 K/uL (0.8-4.8); LYMPHOCYTES % (AUTO) 22.6 % (20.5-51.5); MEAN CORPUSCULAR HEMOGLOBIN 24.3 uug (23.8-33.4); MEAN CORPUSCULAR HGB CONC 31 g/dL (32.5-36.3); MEAN CORPUSCULAR VOLUME 77.9 fL (73.0-96.2); MONOCYTES % (AUTO) 8.1 % (0.0-11.0); NEUTROPHILS # (AUTO) 8.1 K/uL (1.8-8.9); PLATELET COUNT (AUTO) 483 K/uL (152-348); RED BLOOD CELL COUNT(AUTO) 4.37 MIL/uL (4.06-5.63); RED CELL DISTRIBUTION WIDTH 18.7 % (12.1-16.2); WHITE BLOOD COUNT (AUTO) 11.9 K/uL (3.6-10.2)
[2025-02-12 11:57] LABS: DIFFERENTIAL COMMENT 1
[2025-02-12] MEDS: diphenhydrAMINE 50 MG/1 ML VIAL IV ONE (12:01)
[2025-02-12] MEDS: METOCLOPRAMIDE HCL 10 MG/2 ML VIAL IV ONE (12:01)
[2025-02-12] MEDS: IV NORMAL SALINE 1000 ML BAG IV ONE (12:01)
[2025-02-12] MEDS: BUPRENORPHINE HCL 2 MG TAB.SUBL SL ONE (12:01)
[2025-02-12 12:05] LABS: CARBON DIOXIDE 29 mmol/L (21-32); CHLORIDE 103 mmol/L (98-107); CREATININE 1.3 mg/dL (0.6-1.3); GLUCOSE 163 mg/dL (74-106); POTASSIUM 3.8 mmol/L (3.5-5.1); SODIUM SERUM 143 mmol/L (136-145); UREA NITROGEN, BLOOD 18 mg/dL (7-18)
[2025-02-12 12:11] LABS: ALANINE AMINOTRANSFERASE 22 U/L (16-63); ALBUMIN 3.7 g/dL (3.4-5.0); ALKALINE PHOSPHATASE 198 U/L (50-136); ASPARTATE AMINOTRANSFERASE 19 U/L (15-37); BILIRUBIN,DIRECT 0.1 mg/dL (0.0-0.2); BILIRUBIN,TOTAL 0.2 mg/dL (0.2-1.0); LIPASE 30 U/L (16-77); TOTAL PROTEIN, SERUM 8.7 g/dL (6.4-8.2)
[2025-02-12 14:14] VITALS: BP 130/80; O2SAT 99
== END 2025-02-12 13:52 | disposition home or self-care (01) ==
LOC: ER 09:44
DX: R11.15 Cyclical vomiting syndrome unrelated to migraine (principal); F12.90 Cannabis use, unspecified, uncomplicated; E10.43 Type 1 diabetes mellitus with diabetic autonomic (poly)neuropathy; K58.9 Irritable bowel syndrome, unspecified; Z79.899 Other long term (current) drug therapy; Z90.49 Acquired absence of other specified parts of digestive tract; Z88.7 Allergy status to serum and vaccine
CPT/HCPCS: 99284; 96374; 71045; 96361; 96375; 80076; 80048; 83690; 85025; 84484; 36415; 74021; J1200; J2765; J7040 ×3; A4606; A4663